=== PATIENT | female | born 2000 | race Caucasian/White ===

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

== ENCOUNTER → 2021-05-10 09:51 | Outpatient (CLI) | payer OTHER, SELFPAY ==
[2021-05-12 07:37] LABS: Hepatitis B Surface Antibody Non-Reactive; Rubella IgG Reactive (Nonreactive)
[2021-05-15 17:07] LABS: QNTFERON TB Mitogen Value > 10.00 IU/mL (.); QNTFERON TB Nil Value 0.31 IU/mL (.); QNTFERON TB1+ Ag Value 1.93 IU/mL (.); QNTFERON TB2+ Ag Value 2.09 IU/mL (.)
[2021-05-15 20:27] LABS: QNTIFERON TB Positive Criteria Positive (Negative); V-Zoster IgG (Immunity) 199 index (Immune >165)
== END ==
PROVIDERS: PCP Pediatrics; Referring Provider Pediatrics; Visit Provider Pediatrics
DX: Z11.9 Encounter for screening for infectious and parasitic diseases, unspecified (principal)
CPT/HCPCS: 36415; 86480; 86706; 86735; 86762; 86765; 86787

== ENCOUNTER → 2021-05-17 08:18 | Outpatient (CLI) | payer OTHER, SELFPAY ==
--- NOTE | 2021-05-17 08:45 | RAD_ITS ---
STUDY: X-RAY CHEST REASON FOR EXAM: Female, 20 years old. POSITIVE QUANTIFERON TB GOLD TEST TECHNIQUE: PA and lateral views of the chest. COMPARISON: 06/29/2011 FINDINGS: The lungs are clear and expanded. There is no demonstrated pleural abnormality. Normal size heart. Normal mediastinum and albino. Normal visualized pulmonary arteries. Normal visualized aortic arch and descending thoracic aorta. Normal visualized thoracic spine. Normal visualized ribs, clavicles, and shoulders. There is no demonstrated abnormality of the visualized soft tissue structures of the upper abdomen. RAD/Chest PA and Lateral IMPRESSION: Normal x-ray examination of the chest. Electronically Signed: Delmar Menchaca MD ([place]) at 18:08 EDT , Service support ,
[2021-05-19 11:14] LABS: HIV - WCH Non-Reactive (Nonreactive); Hepatitis C Antibody Non-Reactive (Nonreactive)
== END ==
PROVIDERS: PCP Pediatrics; Referring Provider Pediatrics; Visit Provider Pediatrics
DX: R76.12 Nonspecific reaction to cell mediated immunity measurement of gamma interferon antigen response without active tuberculosis (principal); Z11.9 Encounter for screening for infectious and parasitic diseases, unspecified
CPT/HCPCS: 36415; 71046; 86703; 86803

== ENCOUNTER → 2022-02-24 | Outpatient (CLI) | payer OTHER, SELFPAY ==
[2022-02-24 18:45] LABS: Chlamydia Trachomatis by PCR Negative (Negative); Neisserai gonorrhoeae by PCR Negative (Negative); Probe Check PASS; Sample Adequacy Control PASS; Specimen Processing Control PASS
== END | disposition home or self-care (01) ==
PROVIDERS: PCP Pediatrics; Referring Provider Nurse Practitioner Women's Health; Visit Provider Nurse Practitioner Women's Health
DX: Z11.3 Encounter for screening for infections with a predominantly sexual mode of transmission (principal)
CPT/HCPCS: 87491; 87591

== ENCOUNTER → 2022-06-12 | Outpatient (CLI) | payer OTHER, SELFPAY | END | disposition home or self-care (01) | LOC: RAD 12:56 | PROVIDERS: PCP Pediatrics; Referring Provider Pediatrics; Visit Provider Pediatrics | DX: Z00.00 Encounter for general adult medical examination without abnormal findings (principal) ==

== ENCOUNTER → 2022-06-13 | Outpatient (CLI) | payer OTHER, SELFPAY ==
--- NOTE | 2022-06-13 08:38 | RAD_ITS ---
EXAM: XR CHEST, 2 VIEWS CLINICAL INDICATION: POSTIVE QUANTIFERON TEST TECHNIQUE: Frontal and lateral views of the chest. This report was created using [employer] report generation technology. COMPARISON: XR Chest dated 05/17/2021 FINDINGS: LUNGS AND PLEURAL SPACES: Normal. No consolidation or edema. No pneumothorax. No effusion. HEART: Normal heart size. MEDIASTINUM: No mediastinal or hilar mass. BONES/JOINTS: No acute abnormality. SOFT TISSUES: Normal. RAD/Chest PA and Lateral IMPRESSION: No acute cardiopulmonary abnormality. No interval change. No evidence of active tuberculosis. Electronically Signed: Gary Madrigal MD at 9:29 EST ,
== END | disposition home or self-care (01) ==
LOC: RAD 08:30
PROVIDERS: PCP Pediatrics; Visit Provider Pediatrics
DX: Z11.1 Encounter for screening for respiratory tuberculosis (principal)
CPT/HCPCS: 71046

== ENCOUNTER → 2023-03-03 | Outpatient (CLI) | payer OTHER, SELFPAY ==
[2023-03-09 17:11] LABS: HPV Reflexed? NOT INDICATED
== END | disposition home or self-care (01) ==
LOC: LABSPEC 16:49
PROVIDERS: PCP Pediatrics; Referring Provider Nurse Practitioner Women's Health; Visit Provider Nurse Practitioner Women's Health
DX: Z12.4 Encounter for screening for malignant neoplasm of cervix (principal)
CPT/HCPCS: 88175; G0145

== ENCOUNTER → 2023-09-03 | Outpatient (CLI) | payer OTHER, SELFPAY ==
--- NOTE | 2023-09-03 16:40 | RAD_ITS ---
STUDY: X-RAY CHEST REASON FOR EXAM: Female, 22 years old. left sided chest pain TECHNIQUE: PA and lateral views of the chest. COMPARISON: 06/13/2010 FINDINGS: The lungs are clear and expanded. There is no demonstrated pleural abnormality. Normal size heart. Normal mediastinum and albino. Normal visualized pulmonary arteries. Normal visualized aortic arch and descending thoracic aorta. Normal visualized thoracic spine. Normal visualized ribs, clavicles, and shoulders. There is no demonstrated abnormality of the visualized soft tissue structures of the upper abdomen. RAD/Chest PA and Lateral IMPRESSION: Normal x-ray examination of the chest. Electronically Signed: Tyler Berger MD at 17:06 EST ,
[2023-09-03 17:10] LABS: Absolute Neutrophil Count 4.4 X10^3/uL (2.0-7.7); Basophil# 0.01 X10^3/uL; Basophil% 0.1 % (0-1); Eosinophil# 0.06 X10^3/uL; Eosinophils% 0.6 % (0-5); Hematocrit 44.3 % (37-47); Hemoglobin 15.2 g/dL (12.0-15.0); Lymphocyte % 45.5 % (19-41); Mean Corp Hgb Conc 34.3 g/dL (32-36); Mean Corpuscular Hgb 30.4 pg (27.0-32.0); Mean Corpuscular Volume 88.6 fL (81-99); Mean Platelet Vol. 10.5 fl (6.2-12.0); Monocyte# 0.62 X10^3/uL; Monocyte% 6.6 % (0-10); NRBC Flagged by Analyzer 0 % (0-5); Neutrophil # 4.44 X10^3/uL (2.7-7.7); Platelet Count 295 K/mm3 (150-450); RBC Distribution Width CV 12.3 % (11.6-14.6); RBC Distribution Width SD 39.9 fl (35.1-43.9); White Blood Count 9.5 K/mm3 (4.4-11.0)
--- OUTSIDE RECORDS SUMMARY | 2023-09-03 17:47 | XMS RPT_ITS | CCD ---
Author Name Unknown Address [address] [place] [address] Organization [facility] Care Team Providers Care Care Transitions Nurse Name Role Phone Tricia Beaulieu MD Unavailable [phone] DIMA DAWSON JR. Attending Unavailable JULIUS GALLEGO Primary Care Unavailable Julius Gallego MD Primary Care Provider Julius Gallego MD Primary Care Provider Julius Gallego MD Primary Care Provider Antwon Bowens MD Primary Care Provider [phone] JULIUS GALLEGO Referring Unavailable JULIUS GALLEGO Primary Care Unavailable JULIUS GALLEGO Referring Unavailable JULIUS GALLEGO Primary Care Unavailable ROBY GARCIA II Attending UnavailANTWON Hollis Primary Care Unavailable Allergies Allergy Classification Reported Allergen(s) Allergy Type Date of Onset Reaction(s) Facility (7 sources) Spironolactone; Translations: [SPIRONOLACTONE] Drug Allergy 8 Anaphylaxis, Hives [facility] Repository Medications Current Medications Medication Drug Class(es) Dates Sig (Normalized) Sig (Original) cephalexin 500 mg oral capsule (1 source) Cephalosporin Antibacterial Start: 10-03-2021 End: 10-10-2021 take 1 capsule by mouth four times daily cephALEXin (KEFLEX) 500 MG capsule Take 1 (one) capsule (500 mg total) by mouth 4 (four) times a day for 7 days . 28 capsule 0 10/03/2021 10/10/2021 Active Rojelio 28, 3-0.02 mg per tablet (1 source) Start: 09-17-2021 Nelson Serrato, 3-0.02 mg per tablet silver sulfADIAZINE 10 mg/ml topical cream (1 source) Sulfonamide Antibacterial Start: 10-03-2021 silver sulfADIAZINE (SILVADENE) 1 % cream Apply topically 2 (two) times a day Apply to corner of toe 2 times per day with bandaid for one week . 50 g 0 10/03/2021 Active tropicamide 5 mg/ml ophthalmic solution (1 source) Anticholinergic Start: 04-07-2023 End: 04-07-2023 tropicamide 0.5 % 1 Drop (MYDRIACYL) Completed/Discontinued Medications Medication Drug Class(es) Dates Sig (Normalized) Sig (Original) DROSPIRENONE-ETHIN YL ESTRADIOL (6 sources) Progestin, Estrogen Start: 06-14-2017 take 1 tablet by mouth once daily CAROL 3-0.02 MG TABS One tablet by mouth daily DROSPIRENONE-ETHIN YL ESTRADIOL [id number] Tricia Beaulieu MD Problems Active Problems Problem Classification Problem Date Documented Da te Episodic/Chronic Blindness and vision defects (5 sources) Regular astigmatism; Translations: [Regular astigmatism, unspecified eye] Onset: 02-24-2016 02-24-2016 Episodic Immunizations and screening for infectious disease (2 sources) Patient encounter status; Translations: [Encounter for screening for infectious and parasitic diseases, unspecified] Episodic Menstrual disorders (2 sources) Break-through bleeding; Translations: [Irregular menstruation, unspecified] Onset: 06-14-2017 06-14-2017 Chronic Other skin disorders (1 source) Ingrowing great toenail; Translations: [Ingrowing nail] Episodic Skin and subcutaneous tissue infections (1 source) Cellulitis of left foot; Translations: [Cellulitis of left lower limb] Episodic Past or Other Problems Problem Classification Problem Date Documented Da te Episodic/Chronic Other skin disorders (2 sources) Acne; Translations: [Acne, unspecified] Onset: 06-14-2017 06-14-2017 Episodic Results Test Name Value Interpretation Reference Range Facil ity Vital Signs Date Time Vital Sign Value Performing Clinician Faci lity 10-03-2021 13:32-0400 Body temperature 98.01 [degF] Dima Dawson Jr., DPM Work Phone: [facility] 10-03-2021 13:32-0400 Diastolic blood pressure 76 mm[Hg] Dima Dawson Jr., DPM Work Phone: [facility] 10-03-2021 13:32-0400 Heart rate 89 /min Dima Dawson Jr., DPM Work Phone: [facility] 10-03-2021 13:32-0400 Systolic blood pressure 117 mm[Hg] Dima Dawson Jr., DPM Work Phone: [facility] 06-14-2017 08:58-0500 BMI (Body Mass Index) 23.41 kg/m2 Tricia Beaulieu MD [facility] 06-14-2017 08:58-0500 BP Diastolic 67 mm[Hg] Tricia Beaulieu MD [facility] 06-14-2017 08:58-0500 BP Systolic 106 mm[Hg] Tricia Beaulieu MD [facility] 06-14-2017 08:58-0500 Height 157.48 cm Tricia Beaulieu MD [facility] 06-14-2017 08:58-0500 Weight 58.06 kg Tricia Beaulieu MD [facility] Encounters Encounter Date Encounter Type Care Provider Facility Start: 04-07-2023 End: 04-07-2023 ambulatory ROBY GARCIA II Facility:[facility] Start: 04-07-2023 End: 04-07-2023 Patient encounter procedure Roby Garcia OD Work Phone: Optometry Procedures Date Procedure Procedure Detail Performing Clinician Start: 04-07-2023 Computerized corneal topography uni/bi Roby Garica OD Work Phone: Start: 07-16-2022 Skin test tuberculos is intradermal Vane Gomez PA-C Work Phone: Start: 05-30-2021 Adult depression scr eening assessment Nurse [place] Plan of Treatment Date Care Activity Detail Author Start: 01-23-2024 Tetanus vaccination Tetanus: Every 10yrs [facility] Start: 01-23-2024 Urine microalbumin profile [facility] Start: 03-19-2023 Influenza [facility] Start: 02-24-2023 CHLAMYDIA SCREENING (18-24) CHLAMYDIA SCREENING (18-24) [facility] Start: 02-24-2023 GC (GONORRHEA) SCREENING (18-24) GC (GONORRHEA) SCREENING (18-24) [facility] Start: 2022 Pap Testing Pap Testing [facility] Start: 07-19-2022 DEPRESSION ASSESSMENT DEPRESSION ASSESSMENT [facility] Start: 05-30-2022 Adult depression screening assessment DEPRESSION SCREENING [facility] Start: 03-19-2022 Influenza vaccination INFLUENZA (#1) [facility] Start: 02-06-2022 COVID-19 Vaccine (3 - Booster for Pfizer series) COVID-19 Vaccine (3 - Booster for Pfizer series) [facility] Start: 01-06-2022 End: 03-08-2022 Hepatitis B virus surface Ab [Units/volume] in Serum HEP B SURF AB QUANT Lab Routine Screening examination for infectious disease Expected: 01/06/2022, Expires: 03/08/2022 [facility] Work Phone: Immunizations Immunization Date Immunization Notes Care Provider Qasim mcgarry 04-09-2022 Influenza, injectabl e, Madin [place] Canine Kidney, preservative free, quadrivalent Nurse [facility] 04-09-2022 influenza virus vaccine, unspecified formulation Roby Garcia II, OD Work Phone: [facility] 01-06-2022 hepatitis B vaccine, adult dosage Nurse [facility] Work Phone: 07-09-2021 hepatitis B vaccine, pediatric or pediatric/adolescent dosage Nurse [facility] Work Phone: 05-30-2021 hepatitis B vaccine, pediatric or pediatric/adolescent dosage Nurse [facility] 05-30-2021 influenza, injectabl e, quadrivalent, contains preservative Nurse [facility] 05-29-2020 influenza, injectabl e, quadrivalent, contains preservative Nurse [facility] 05-15-2019 influenza, injectabl e, quadrivalent, contains preservative Nurse [facility] 06-04-2018 influenza, injectabl e, quadrivalent, contains preservative Nurse [facility] 12-23-2017 meningococcal polysaccharide (groups A, C, Y and W-135) diphtheria toxoid conjugate vaccine (MCV4P) [facility] 07-09-2017 influenza, injectabl e, quadrivalent, contains preservative Roby Garcia II, OD Work Phone: [facility] Work Phone: 06-08-2016 influenza, injectabl e, quadrivalent, contains preservative [facility] Work Phone: 12-05-2014 human papilloma viru s vaccine, quadrivalent Nurse [facility] 04-30-2014 human papilloma viru s vaccine, quadrivalent [facility] 04-30-2014 influenza, injectabl e, quadrivalent, preservative free [facility] 01-22-2014 human papilloma viru s vaccine, quadrivalent [facility] Work Phone: 01-22-2014 meningococcal polysaccharide (groups A, C, Y and W-135) diphtheria toxoid conjugate vaccine (MCV4P) [facility] Work Phone: 01-22-2014 tetanus toxoid, redu kelley diphtheria toxoid, and acellular pertussis vaccine, adsorbed [facility] Work Phone: 01-22-2014 varicella virus vaccine [facility] Work Phone: 04-29-2013 influenza virus vaccine, unspecified formulation [facility] 04-06-2008 influenza virus vaccine, live, attenuated, for intranasal use [facility] Work Phone: 03-20-2006 diphtheria, tetanus toxoids and acellular pertussis vaccine [facility] 03-20-2006 measles, mumps and rubella virus vaccine [facility] 03-20-2006 poliovirus vaccine, inactivated Nurse [facility] 06-11-2003 diphtheria, tetanus toxoids and acellular pertussis vaccine [facility] Work Phone: 06-11-2003 haemophilus influenz ae type b vaccine, HbOC conjugate [facility] Work Phone: 06-11-2003 pneumococcal conjuga te vaccine, 7 valent Nurse [facility] Work Phone: 2002 measles, mumps and rubella virus vaccine Nurse [facility] Work Phone: 2002 varicella virus vaccine Nurse [facility] Work Phone: 09-08-2002 pneumococcal conjuga te vaccine, 7 valent Nurse [facility] Work Phone: 05-19-2002 diphtheria, tetanus toxoids and acellular pertussis vaccine Nurse [facility] Work Phone: 05-19-2002 haemophilus influenz ae type b vaccine, HbOC conjugate [facility] Work Phone: 05-19-2002 hepatitis B vaccine, pediatric or pediatric/adolescent dosage Nurse [facility] Work Phone: 05-19-2002 pneumococcal conjuga te vaccine, 7 valent [facility] Work Phone: 05-19-2002 poliovirus vaccine, inactivated Nurse [facility] Work Phone: 03-24-2002 diphtheria, tetanus toxoids and acellular pertussis vaccine [facility] Work Phone: 03-24-2002 haemophilus influenz ae type b vaccine, HbOC conjugate [facility] Work Phone: 03-24-2002 poliovirus vaccine, inactivated Nurse [facility] Work Phone: 01-24-2002 diphtheria, tetanus toxoids and acellular pertussis vaccine Nurse [facility] Work Phone: 01-24-2002 haemophilus influenz ae type b vaccine, HbOC conjugate [facility] Work Phone: 01-24-2002 hepatitis B vaccine, pediatric or pediatric/adolescent dosage Nurse [facility] Work Phone: 01-24-2002 pneumococcal conjuga te vaccine, 7 valent Nurse [facility] Work Phone: 01-24-2002 poliovirus vaccine, inactivated Nurse [facility] Work Phone: 2001 hepatitis B vaccine, pediatric or pediatric/adolescent dosage Nurse [place] [facility] Work Phone: Payers Date Payer Category Payer Unknown [id number] 2020 Unknown MMO MMO TPA [id number] 2020-Present [address] [place] [address] PPO [id number] 2015 Unknown [id number] 2015 Unknown [id number] 2001 Unknown [id number] Social History Date Type Detail Facility Start: 06-29-2017 End: 10-03-2021 Tobacco smoking status NHIS Never smoked tobacco [facility] Start: 06-29-2017 End: 10-03-2021 Tobacco use and exposure Smokeless tobacco non-user [facility] Start: 10-03-2021 Alcohol intake Current drinke r of alcohol (finding) [facility] Start: 10-03-2021 History SDOH Alcohol Comment occasionally [facility] Start: 2001 Sex Assigned At Not on file [facility] Start: 09-23-2021 End: 10-03-2021 Exposure to SARS-CoV-2 (event) Not sure [facility] Start: 06-10-2021 End: 04-07-2023 Alcohol intake Lifetime non-drinker (finding) [facility] Start: 05-29-2020 History SDOH Alcohol Frequency 1 [facility] Start: 05-29-2020 End: 04-07-2023 History of Social function [facility] Start: 05-29-2020 End: 04-07-2023 Alcohol Use Disorder Identification Test - Consumption [AUDIT-C] [facility] How often to you hav e a drink containing alcohol? Never [facility] Average Number of Drinks Not on file [facility] Progress note 04-07-2023 Note Date & Type Note Facility 04-07-2023 Note HNO ID: [id number] Author: Roby Garcia II, OD Service: ? Author Type: MANAGING COGNITIVE ENGINEER Type: Progress Notes Filed: 04/07/2023 9:54 AM Note Text: Assessment and Plan H52.223 Regular astigmatism of both eyes (primary encounter diagnosis) Comment: Ocular health maintained with contact lens use. Good fit. Celeste stable. Will order daily disposables to try. Recheck in one year. I have confirmed and edited as necessary the relevant ophthalmic history, ROS, and the neuro exam findings as obtained by others. I have seen and examined Ashley A Trudy. I have discussed the case and the management of this patient's care with the Resident/Fellow, if applicable. I also have reviewed and agree with the assessment and plan as stated above and agree with all of its relevant components. Roby Garcia II, OD [facility] Instructions 04-07-2023 Patient Instructions Note Date & Type Note Facility 04-07-2023 Instructions Roby Garcia II, OD - 04/07/2023 9:44 AM EDT Assessment and Plan H52.223 Regular astigmatism of both eyes (primary encounter diagnosis) Comment: Ocular health maintained with contact lens use. Good fit. Celeste stable. Will order daily disposables to try. Recheck in one year. I have confirmed and edited as necessary the relevant ophthalmic history, ROS, and the neuro exam findings as obtained by others. I have seen and examined Ashleyevangelina Yates. I have discussed the case and the management of this patient's care with the Resident/Fellow, if applicable. I also have reviewed and agree with the assessment and plan as stated above and agree with all of its relevant components. Roby Garcia II, OD documented in this encounter [facility] History of Present illness Narrative 04-07-2023 Roby Garcia II OD - 04/07/2023 9:43 AM EDT Note Date & Type Note Facility 04-07-2023 History of Presen t illness Narrative Assessment and Plan H52.223 Regular astigmatism of both eyes (primary encounter diagnosis) Comment: Ocular health maintained with contact lens use. Good fit. Celeste stable. Will order daily disposables to try. Recheck in one year. I have confirmed and edited as necessary the relevant ophthalmic history, ROS, and the neuro exam findings as obtained by others. I have seen and examined Ashley Yates. I have discussed the case and the management of this patient's care with the Resident/Fellow, if applicable. I also have reviewed and agree with the assessment and plan as stated above and agree with all of its relevant components. Roby Garcia II, MICHAEL documented in this encounter [facility] Note 06-12-2022 Telephone Encounter - Yudith Barrett LPN - 06/12/2022 12:27 PM ESTTelephone Encounter - Francisco Javier Dunn MD - 06/12/2022 11:31 AM ESTTelephone Encounter - Yudith Barrett LPN - 06/12/2022 10:50 AM EST Note Date & Type Note Facility 06-12-2022 Miscellaneous Notes Formattin g of this note might be different from the original. Order was faxed to [facility] at [phone]. Pt was notified. Form completed and signed Pt wonders if you can order the chest xray, as is able to get it done today? [facility] order form is in your box. Pt wonders if an order can be faxed to [facility] to have the xray done? Patient calling to report that had another positive Quantiferon test (done at [facility] in [place]- will be working there). She was wondering if you would be willing to order a chest X-ray for clearance to begin work. Would like to have done Wednesday. Buddy Dean RN documented in this encounter [facility] History of Present illness Narrative 10-03-2021 Dima Dawson Jr., BACILIO - 10/03/2021 1:47 PM EDT Note Date & Type Note Facility 10-03-2021 History of Presen t illness Narrative HPI Chief Complaint Patient presents with Ingrown Toenail L great toe nail ingrown --x 2-3 wks pt has dealt with ingrown toe nails for years and has had the L nail completely removed and it has grown back - toe is red and has had some drainage Patient is a pleasant 20-year-old female who comes in today with an acute left medial ingrown nail. She states that nearly 1 year ago, and [place] she had a bad ingrown nail with an infection. She had a total nail avulsion performed at that time and washed out. States that it did well for quite a while however the medial corner continues to get ingrown becomes painful sore and is uncomfortable. Comes in today to know what can be done and what her options are. Additionally she is hoping to have a nail avulsion performed with a matrixectomy. History reviewed. No pertinent past medical history. Past Surgical History: Procedure Laterality Date WISDOM TOOTH EXTRACTION Social History Socioeconomic History Marital status: Single Tobacco Use Smoking status: Never Smoker Smokeless tobacco: Never Used Vaping Use Vaping Use: Never used Substance and Sexual Activity Alcohol use: Yes Comment: occasionally Drug use: Never Review of Systems Constitutional: Negative for chills and fever. Respiratory: Negative for chest tightness and shortness of breath. Cardiovascular: Negative for chest pain and palpitations. Gastrointestinal: Negative for diarrhea, nausea and vomiting. Skin: Negative for color change and wound. Physical Exam -Patient is AOx3. Linear and appropriate humor and thought process. Vascular: DP PT pulses are easily palpable 2-4. CFT is normal no edema. Derm: Erythema present to the distal medial toe with serous output. No streaking no lymphangitis no fluctuance or crepitation. Neuro: Light touch is normal Babinski's is normal. Musculoskeletal: Muscle strength is 5/5 fair tone. Can easily wiggle toes not any clicking or catching. Does have much pain to the medial aspect of her toe where the nail is clearly ingrown and painful. Impression/Plan Problem List Items Addressed This Visit None Patient is a pleasant 20-year-old female with an acute on chronic medial ingrown nail with cellulitis. -Today can start oral cephalexin 500 mg every 6 hours 7 days 20 tabs 0 refills. -Postop can apply topical Silvadene twice daily for 1 week with a Band-Aid -Today additionally did go over options including a nail avulsion or nail avulsion with matrixectomy. After discussion, plan is for nail avulsion with chemical matrixectomy for permanency given the acute on chronic nature. No guarantees are implied or made. Primary risks include recurrence pain tingling burning scarring infection ingrowing nail and osteomyelitis. Despite this risk, she does wish to proceed. No guarantees are implied or made. Consent was signed and documented in the EMR. Procedure: Timeout and consent was performed for Left great toe medial and lateral nail avulsion. Patient was blocked with 3 cc of 2% lidocaine plain in each block type fashion. Attention was directed first medially. An Estonian anvil was used to split the nail distally to proximally. 3 mm off the hyponychium just below the eponychial him and finished with a 6100 blade. With a straight hemostat the nail was bluntly avulsed and passed off the surgical field. A curette was used to check for spicules, none were found. A copious amount of normal saline was used. Next, 3 applications of phenol 30 seconds each on cotton were applied to the matrix. Post matrixectomy a copious amount of normal saline was used to irrigate the site and the location. Post irrigation a copious amount of bacitracin was applied and a postop dressing was applied with Telfa Garciax and Margarita. Low medical complexity decision making in light of the acute on chronic nature and the chronicity portion requiring a procedure. documented in this encounter [facility] Instructions 10-03-2021 Patient Instructions Note Date & Type Note Facility 10-03-2021 Instructions Kyra Andrews TECHNOLOGIST - 10/03/2021 1:33 PM EDT Nail Surgery Post-Operative Instructions General Information Stay off your feet as much as possible today. You may wear any shoe, sandal, or open toe footwear that does not squeeze or constrict your toe. Your toe may remain numb for up to 6-10 hours after the procedure. Bleeding/Drainage Slight bleeding, discoloration and/or red, pink, orange drainage is normal. Discomfort You can elevate your foot to help alleviate minor swelling, bleeding and discomfort. You may also take aspirin, Tylenol or other [id number] pain relievers as directed on the package. If pain is not controlled to your comfort, please contact our office. Removing the surgical bandage/dressing The day after the surgery, carefully remove the dressing and shower/bathe as normal. If the gauze or dressing sticks to the surgical area, dampen it with water or shower/bathe with the dressing in place. This will make the dressing easier to remove with minimal discomfort. Blot dry with a clean cloth. A band-aid and antibiotic ointment should be changed twice daily on the surgical area until your follow-up appointment with the doctor. documented in this encounter [facility] Evaluation note Note Date & Type Note Facility documented in this encounter [facility] note Note Date & Type Note Facility documented in this encounter [facility] Evaluation note Note Date & Type Note Facility documented in this encounter [facility] Evaluation note Note Date & Type Note Facility documented in this encounter [facility] Summary Purpose Family History No Family History Records FoundNo Family History Records FoundNo Family History Records Found Advance Directives No Advanced Directives Records FoundDocuments on File Type Date Recorded Patient Turning Sander Tender Expl anation Advance Directives and Living Will Medications Administered Section Administered Medications Medication Order MAR Action Action Date Dose Rate Site PPD ([place]) Intradermal Given 07/14/2022 10:02 EST 0.1 mL Right Lower Forearm Additional Source Comments INFORMATION SOURCE (unrecogn ized section and content) DATE CREATED AUTHOR AUTHOR'S ORGANIZ ATION 06/05/2022 [facility] ([place]) DATE CREATED AUTHOR AUTHOR'S ORGANIZ ATION 04/08/2023 [facility] Reason for Visit (unrecogniz ed section and content) Specialty Diagnoses / Procedures Referred By Contac t Referred To Contact PEDIATRICS Diagnoses Hep B booster Procedures OFFICE/OUTPATIENT ESTABLISHED LOW MDM 20-29 MIN 4C NURSE Julius Kellogg MD [address] [place] [address] [facility] [address] [place] [address] Referral ID Status Reason Start Date Expiration Date Visits Re quested Visits Authorized [id number] Closed 01/06/2022 07/18/2022 1 1 Reason Comments Question Specialty Diagnoses / Procedures Referred By Contac t Referred To Contact Internal Medicine / FAMILY MEDICINE Diagnoses TB test Procedures OFFICE/OUTPATIENT ESTABLISHED LOW MDM 20-29 MIN NURSE Julius Gallego MD [address] [place] [address] Nurse, Md [address] [place] [address] Referral ID Status Reason Start Date Expiration Date Visits Re quested Visits Authorized [id number] Closed 07/14/2022 07/18/2022 2 2 Reason Comments Yearly Exam Contact lens evaluation Care Teams (unrecognized sec tion and content) Care Transitions Nurse Relationship Specialty Start Date End Date Julius Gallego MD [address] [place], [place] [id number] PCP - General 10/29/03 Care Transitions Nurse Relationship Specialty Start Date End Date Julius Gallego MD [address], [place] [id number] PCP - General 10/29/03 Care Transitions Nurse Relationship Specialty Start Date End Date Julius Gallego MD [address], [place] [id number] PCP - General 10/29/03 Care Transitions Nurse Relationship Specialty Start Date End Date Antwon Bowens MD [address] [place] [address] PCP - General Internal Medicine 04/07/23 Source Comments (unrecognize d section and content) In the event this informatio n is protected by the Federal Confidentiality of Alcohol and Drug Abuse Patient Records regulations: The Federal rules restrict any use of the information to criminally investigate or prosecute any alcohol or drug abuse patient.[facility] the event this information is protected by the Federal Confidentiality of Alcohol and Drug Abuse Patient Records regulations: The Federal rules restrict any use of the information to criminally investigate or prosecute any alcohol or drug abuse patient.[facility] the event this information is protected by the Federal Confidentiality of Alcohol and Drug Abuse Patient Records regulations: The Federal rules restrict any use of the information to criminally investigate or prosecute any alcohol or drug abuse patient.[facility] the event this information is protected by the Federal Confidentiality of Alcohol and Drug Abuse Patient Records regulations: The Federal rules restrict any use of the information to criminally investigate or prosecute any alcohol or drug abuse patient.[facility] FOR RECORDS PERTAINING TO PATIENTS WHO ARE OR HAVE BEEN ENROLLED IN A CHEMICAL DEPENDENCY/SUBSTANCEABUSE PROGRAM, SOME INFORMATION MAY BE OMITTED. This clinical summary was aggregated from multiple sources. Caution should be exercised in using it in the provision of clinical care. This summary normalizes information from multiple sources, and as a consequence, information in this document may materially change the coding, format and clinical context of patient data. In addition, data may be omitted in some cases. CLINICAL DECISIONS SHOULD BE BASED ON THE PRIMARY CLINICAL RECORDS. [facility]. provides no warranty or guarantee of the accuracy or completeness of information in this document.
[2023-09-03 17:49] LABS: Anion Gap 3 (5-15); BUN 16 mg/dL (7-18); BUN/Creat Ratio 17.1 RATIO (10-20); CRP < 2.90 mg/L (0.0-3.0); Calcium,Total 9.5 mg/dL (8.5-10.1); Chloride 108 mmol/L (98-107); Creatinine, Serum 0.94 mg/dL (0.55-1.02); EST Glomerular Filtration Rate 80 mL/min (>60); Est Glom Filt Rate - Afr Amer 96 mL/min (>60); Glucose 96 mg/dL (74-106); Magnesium 2.4 mg/dL (1.6-2.6); Potassium 3.9 mmol/L (3.5-5.1); Sodium Level 140 mmol/L (136-145); T4 Total, Thyroxin 9.5 ug/dL (4.8-13.9); Thyroid Stim Hormone (TSH) 4.67 uIU/mL (0.358-3.74); Troponin-I HS < 3 pg/mL (3.0-54.0)
== END | disposition home or self-care (01) ==
PROVIDERS: PCP Internal Medicine; Referring Provider Nurse Practitioner; Visit Provider Nurse Practitioner
DX: R06.02 Shortness of breath (principal); R07.9 Chest pain, unspecified
CPT/HCPCS: 36415; 71046; 80048; 83735; 84436; 84443; 84484; 85025; 86140; 87635

== ENCOUNTER → 2024-02-28 | Outpatient (CLI) | payer OTHER, SELFPAY ==
[2024-03-02 07:09] LABS: Chlamydia By Nucleic Acid AMP Negative (Negative); Gonococcus By Nucleic Acid AMP Negative (Negative)
== END | disposition home or self-care (01) ==
PROVIDERS: PCP Internal Medicine; Referring Provider Obstetrics & Gynecology; Visit Provider Obstetrics & Gynecology
DX: O09.90 Supervision of high risk pregnancy, unspecified, unspecified trimester (principal); Z3A.00 Weeks of gestation of pregnancy not specified
CPT/HCPCS: 87086; 87491; 87591

== ENCOUNTER → 2024-03-06 | Outpatient (CLI) | payer OTHER, SELFPAY ==
[2024-03-06 08:17] LABS: Absolute Lymphocyte Count 3.38 X10^3/uL (0.83-4.51); Absolute Neutrophil Count 7.1 X10^3/uL (2.0-7.7); Basophil# 0.02 X10^3/uL; Basophil% 0.2 % (0-1); Eosinophils% 0.9 % (0-5); Hematocrit 38.5 % (37-47); Hemoglobin 13.3 g/dL (12.0-15.0); Lymphocyte # 3.38 X10^3/ul (0.83-4.51); Lymphocyte % 30.2 % (19-41); Mean Corp Hgb Conc 34.5 g/dL (32-36); Mean Corpuscular Hgb 30.5 pg (27.0-32.0); Mean Corpuscular Volume 88.3 fL (81-99); Mean Platelet Vol. 10.7 fl (6.2-12.0); Monocyte# 0.56 X10^3/uL; NRBC Flagged by Analyzer 0 % (0-5); Neutrophil # 7.12 X10^3/uL (2.7-7.7); Neutrophil % 63.4 % (47-70); Platelet Count 228 K/mm3 (150-450); RBC Distribution Width CV 12.5 % (11.6-14.6); RBC Distribution Width SD 40.3 fl (35.1-43.9); Red Blood Count 4.36 M/mm3 (4.2-5.4); White Blood Count 11.2 K/mm3 (4.4-11.0)
[2024-03-06 09:13] LABS: HIV - WCH Non-Reactive (Nonreactive); Hepatitis B Surface Antigen Non-Reactive (Nonreactive); Hepatitis C Antibody Non-Reactive (Nonreactive); Rubella IgG Reactive (Nonreactive); Syphilis Antibodies Non-reactive
[2024-03-06 09:50] LABS: ALB/GLOB Ratio 0.8 RATIO (0.9-2.4); AST(SGOT) 16 U/L (15-37); Alanine Aminotransfer ALT/SGPT 33 U/L (13-56); Albumin, Serum 3.2 g/dL (3.2-5.0); Alkaline Phosphatase 69 U/L (45-117); Anion Gap 8 (5-15); BUN 8 mg/dL (7-18); BUN/Creat Ratio 11.1 RATIO (10-20); Calcium,Total 8.8 mg/dL (8.5-10.1); Chloride 104 mmol/L (98-107); Cholesterol 164 mg/dL (200); Creatinine, Serum 0.72 mg/dL (0.55-1.02); EST Glomerular Filtration Rate 108 mL/min (>60); Est Glom Filt Rate - Afr Amer 130 mL/min (>60); Glucose 88 mg/dL (74-106); High Density Lipoprotein 63 mg/dL; Potassium 3.5 mmol/L (3.5-5.1); Protein, Total 7.2 g/dL (6.4-8.2); Sodium Level 135 mmol/L (136-145); Triglycerides 182 mg/dL; Very Low Density Lipoprotein 36 mg/dL (5-40)
== END | disposition home or self-care (01) ==
LOC: LAB 07:38
PROVIDERS: PCP Internal Medicine; Referring Provider Obstetrics & Gynecology; Visit Provider Obstetrics & Gynecology
DX: Z34.01 Encounter for supervision of normal first pregnancy, first trimester (principal); Z31.430 Encounter of female for testing for genetic disease carrier status for procreative management
CPT/HCPCS: 36415; 80053; 80061; 85025; 86703; 86762; 86780; 86803; 86850; 86900; 86901; 87340

== ENCOUNTER → 2024-03-08 | Outpatient (CLI) | payer OTHER, SELFPAY ==
[2024-03-08 14:50] LABS: T4 Free Direct 0.99 ng/dL (0.76-1.46)
== END | disposition home or self-care (01) ==
LOC: LAB 13:54
PROVIDERS: PCP Internal Medicine; Referring Provider Obstetrics & Gynecology; Visit Provider Obstetrics & Gynecology
DX: R94.6 Abnormal results of thyroid function studies (principal)
CPT/HCPCS: 36415; 84439; 84443

== ENCOUNTER → 2024-07-05 | Outpatient (CLI) | payer OTHER, SELFPAY ==
[2024-07-05 10:31] LABS: Absolute Lymphocyte Count 2.46 X10^3/uL (0.83-4.51); Absolute Neutrophil Count 7.2 X10^3/uL (2.0-7.7); Basophil# 0.03 X10^3/uL; Basophil% 0.3 % (0-1); Eosinophil# 0.06 X10^3/uL; Eosinophils% 0.6 % (0-5); Hematocrit 38.5 % (37-47); Hemoglobin 13.2 g/dL (12.0-15.0); Lymphocyte # 2.46 X10^3/ul (0.83-4.51); Lymphocyte % 23.5 % (19-41); Mean Corp Hgb Conc 34.3 g/dL (32-36); Mean Corpuscular Hgb 32.2 pg (27.0-32.0); Mean Corpuscular Volume 93.9 fL (81-99); Mean Platelet Vol. 12.2 fl (6.2-12.0); Monocyte# 0.61 X10^3/uL; Monocyte% 5.8 % (0-10); NRBC Flagged by Analyzer 0 % (0-5); Neutrophil # 7.23 X10^3/uL (2.7-7.7); Platelet Count 184 K/mm3 (150-450); RBC Distribution Width CV 12.7 % (11.6-14.6); RBC Distribution Width SD 43.9 fl (35.1-43.9); White Blood Count 10.5 K/mm3 (4.4-11.0)
[2024-07-05 10:57] LABS: Glucose Challenge Gest 1H 50g 141 mg/dL (70-140)
[2024-07-06 08:36] LABS: HIV - WCH Non-Reactive (Nonreactive); Syphilis Antibodies Non-reactive
== END | disposition home or self-care (01) ==
LOC: BWCLAB 08:08
PROVIDERS: Obstetrics & Gynecology; PCP Internal Medicine; Referring Provider Obstetrics & Gynecology; Visit Provider Obstetrics & Gynecology
DX: O09.90 Supervision of high risk pregnancy, unspecified, unspecified trimester (principal); Z3A.00 Weeks of gestation of pregnancy not specified; Z13.1 Encounter for screening for diabetes mellitus
CPT/HCPCS: 36415; 82950; 85025; 86703; 86780

== ENCOUNTER → 2024-07-21 | Outpatient (CLI) | payer OTHER, SELFPAY ==
[2024-07-21 07:15] LABS: Bedside Glucose 80 mg/dL (74-106)
[2024-07-21 07:27] LABS: Glucose GTT-Gestation. Fasting 85 mg/dL (<105)
[2024-07-21 08:20] LABS: Glucose GTT-Gestational 1 Hr 171 mg/dL (<190)
[2024-07-21 10:03] LABS: Glucose GTT-Gestational 2 Hr 124 mg/dL (<165)
[2024-07-21 10:32] LABS: Glucose GTT-Gestational 3 Hr 110 L (<145)
== END | disposition home or self-care (01) ==
LOC: LAB 06:47
PROVIDERS: PCP Internal Medicine; Referring Provider Advanced Practice Midwife; Visit Provider Advanced Practice Midwife
DX: Z13.1 Encounter for screening for diabetes mellitus (principal)
CPT/HCPCS: 36415; 82951; 82952; 82962

== ENCOUNTER → 2024-08-29 | Outpatient (CLI) | payer OTHER, SELFPAY | END | disposition home or self-care (01) | LOC: LABSPEC 11:46 | PROVIDERS: PCP Internal Medicine; Referring Provider Obstetrics & Gynecology; Visit Provider Obstetrics & Gynecology | DX: O09.90 Supervision of high risk pregnancy, unspecified, unspecified trimester (principal); Z3A.00 Weeks of gestation of pregnancy not specified | CPT/HCPCS: 87081 ==

== ENCOUNTER 2024-09-05 08:25 | Outpatient (CLI) | payer OTHER, SELFPAY ==
[2024-09-05 08:44] VITALS: BMI 31.6
--- NOTE | 2024-09-05 13:17 | OB.TRI.HP_ITS ---
HPI - General General Chief Complaint: NST HPI Narrative ERIN PRATER, is a 23 F who presents at 36.3 with di-di twins for NST. Maternal Data Information HONG Calculator Estimated Delivery Date Method Current WG Current Estimate 09/30/24 LMP (Certain) 36w 3d Other Estimates 10/02/24 Ultrasound #1 36w 1d # 2 PFSH PFSH Medical History Medium chain acyl CoA dehydrogenase deficiency [facility] Medications ?Medication ?Instructions ?Recorded ?Last Taken ?Type PNV 153-FA 400 mcg-om3 35 mg-dha tab PO 02/18/24 Unkno wn History 25 mg-epa 5 mg-fish oil chew tablet ferrous sulfate 325 mg (65 mg 325 mg PO QDAY 04/27/24 Unknown History iron) tablet breast pump #1 ea 06/29/24 Unknown Rx Allergy/AdvReac Type Severity Reaction Status Date / Time spironolactone (From Allergy Anaphylaxis Verified 09/05/24 08:47 Aldactone) Family History Brother Type 1 diabetes Grandmother Cancer Skin cancer Father High cholesterol Grandfather CVA (cerebral vascular accident) Mother Thyroid disorder Surgical History H/O wisdom tooth extraction Social History adopted: No household members: spouse current occupational status: employed current occupation: Cardiac Ultrasound -[employer] pets and animals: Yes pets and animals: dog(s) history of recent travel: No sexually active: Yes Smoking Status: Never smoker alcohol intake: current alcohol intake frequency: a few times a month details: not while substance use type: does not use well-balanced diet: daily or most days caffeine: Yes (1 Crystal Light) eating out: rarely or never during the past year weight has: remained stable what type of physical activity do you participate in: walking frequency: 1-2 times per week duration: 30-45 minutes/day rosaura/samaritan: None seatbelt use: always do you feel safe at home: Yes 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 1 Elective abortions Hx Para 0 Spontaneous abortions Hx # Term Pregnancies Ectopic pregnancies Hx # Pregnancies Multiple births # of living children Visit Details Expected Delivery Route/Plan Labor Preferences- CB/BF classes: [] labor support person: [] labor intervention preferences: [] pain management options preferred: [] cut cord/dad catch: [] : [] PP control planned: [] discussed possible routes of delivery and associated risks: [] special requests: [] Plans Covid status: [] Flu vaccine: [] Tdap vaccine: [] Rhogam: [] LARC form signed: [] Problem list reviewed and updated with the most current plan of care details and appropriate orders placed. Relevant counseling for the gestational age provided. Continue routine care and follow up unless otherwise noted in visit notes/problem list details OB Flowsheet Initial Weight: Not Recorded Date -?-?-?-?-?-?-?-?-?-?-?-?- EGA Weight BP Urine Prot -?-?-?-?-?-?-?-?-?-?-?-?- Glucose FHR FuHt Pres Dilation -?-?-?-?-?-?-?-?-?-?-?-?- Effaced St Visit Note 02/28/24 -?-?-?-?-?-?-?-?-?-?-?-?- 9w 2d 147 lb 4 oz 134/82 -?-?-?-?-?-?-?-?-?-?-?-?- A 169 -?-?-?-?-?-?-?-?-?-?-?-?- B 165 A -?-?-?-?-?-?-?-?-?-?-?-?- B -?-?-?-?-?-?-?-?-?-?-?-?- A -?-?-?-?-?-?-?-?-?-?-?-?- B A JV- CRL 2.34 -?-?-?-?-?-?-?-?-?-?-?-?- B CRL 2.54 both appear to be i n completely separate sacs- appear di/di. desires nipt. works at [employer] but wants [facility] ultrasound. 03/31/24 -?-?-?-?-?-?-?-?-?-?-?-?- 13w 6d 146 lb 128/86 Negative -?-?-?-?-?-?-?-?-?-?-?-?- Negative A 153 -?-?-?-?-?-?-?-?-?-?-?-?- B 163 A -?-?-?-?-?-?-?-?-?-?-?-?- B -?-?-?-?-?-?-?-?-?-?-?-?- A -?-?-?-?-?-?-?-?-?-?-?-?- B A KW- no vb/crampi ng. Do ing well. US ordered -?-?-?-?-?-?-?-?-?-?-?-?- B 04/27/24 -?-?-?-?-?-?-?-?-?-?-?-?- 17w 5d 150 lb 123/81 Negative -?-?-?-?-?-?-?-?-?-?-?-?- Negative A 150 -?-?-?-?-?-?-?-?-?-?-?-?- B 160 A -?-?-?-?-?-?-?-?-?-?-?-?- B -?-?-?-?-?-?-?-?-?-?-?-?- A -?-?-?-?-?-?-?-?-?-?-?-?- B A SM- no vb crampi ng -?-?-?-?-?-?-?-?-?-?-?-?- B 05/23/24 -?-?-?-?-?-?-?-?-?-?-?-?- 21w 3d 157 lb 126/76 Negative -?-?-?-?-?-?-?-?-?-?-?-?- Negative A 155 -?-?-?-?-?-?-?-?-?-?-?-?- B 144 A -?-?-?-?-?-?-?-?-?-?-?-?- B -?-?-?-?-?-?-?-?-?-?-?-?- A -?-?-?-?-?-?-?-?-?-?-?-?- B A KW- no vb/lof/ct x. good fm. doing well. -?-?-?-?-?-?-?-?-?-?-?-?- B 06/22/24 -?-?-?-?-?-?-?-?-?-?-?-?- 25w 5d 160 lb 4 oz 133/86 Nega tive -?-?-?-?-?-?-?-?-?-?-?-?- Negative A 140 -?-?-?-?-?-?-?-?-?-?-?-?- B 139 32 A Cephalic -?-?-?-?-?-?-?-?-?-?-?-?- B Cephalic -?-?-?-?-?-?-?-?-?-?-?-?- A -?--?-?-?-?-?-?-?-?-?-?-?- B A JV- no lof, vagi nal bleeding, or dec fm. plan gct next visit . has growth scan coming up on [place]. -?-?-?-?-?-?-?-?-?-?-?-?- B 07/10/24 -?-?-?-?-?-?-?-?-?-?-?-?- 28w 2d 162 lb 6 oz 119/78 Nega tive -?-?-?-?-?-?-?-?-?-?-?-?- Negative A 145 -?-?-?-?-?-?-?-?-?-?-?-?- B 135 A Cephalic -?-?-?-?-?-?-?-?-?-?-?-?- B Cephalic -?-?-?-?-?-?-?-?-?-?-?-?- A -?-?-?-?-?-?-?-?-?-?-?-?- B A Sm- no vb lof go od fm no regular ctx -?-?-?-?-?--?-?-?-?-?-?-?- B 07/27/24 -?-?-?-?-?-?-?-?-?-?-?-?- 30w 5d 165 lb 2 oz 118/75 -?-?-?-?-?-?-?-?-?-?-?-?- A 136 -?-?-?-?-?-?-?-?-?-?-?-?- B 141 A Cephalic -?-?-?-?-?-?-?-?-?-?-?-?- B Breech -?-?-?-?-?-?-?-?-?-?-?-?- A -?-?-?-?-?-?-?-?-?-?-?-?- B A JV- no lof, vagi nal bleeding, or dec fm. baby b is breech today. plan nsts on l&D at 36 weeks. -?-?-?-?-?-?-?-?-?-?-?-?- B 08/08/24 -?-?-?-?-?-?-?-?-?-?-?-?- 32w 3d 167 lb 4 oz 117/79 Nega tive -?-?-?-?-?-?-?-?-?-?-?-?- Negative A 158 -?-?-?-?-?-?-?-?-?-?-?-?- B 143 39 A Cephalic -?-?-?-?-?-?-?-?-?-?-?-?- B Cephalic -?-?-?-?-?-?-?-?-?-?-?--?- A -?-?-?-?-?-?-?-?-?-?-?-?- B A JV- no complaint s today. ultrasound reviewed. 2.1% discordance -?-?-?-?-?-?-?-?-?-?-?-?- B 08/22/24 -?--?-?-?-?-?-?-?-?-?-?-?- 34w 3d 170 lb 6 oz 119/78 Nega tive -?-?-?-?-?-?-?-?-?-?-?-?- Negative A 124 -?-?-?-?-?-?-?-?-?-?-?-?- B 131 A Cephalic -?-?-?-?-?-?-?-?-?-?-?-?- B Cephalic -?-?-?-?-?-?-?-?-?-?-?-?- A -?-?-?-?-?-?-?-?-?-?-?-?- B A JV- no contracti ons, loss of fluid, bleeding, or dec fm. next growth scan is not until 09/07. plan to bring back next week for gbs. -?-?-?-?-?-?-?-?-?-?-?-?- B 08/29/24 -?-?-?-?-?-?-?-?-?-?-?-?- 35w 3d 176 lb 2 oz 133/86 Nega tive -?-?-?-?-?-?-?-?-?-?-?-?- Negative A 125 -?-?-?-?-?-?-?-?-?-?-?-?- B 160 A Cephalic -?-?-?-?-?-?-?-?-?-?-?-?- B Cephalic -?-?-?-?-?-?-?-?--?-?-?-?- A -?-?-?-?-?-?-?-?-?-?-?-?- B A SM- no vb lof go od fm no reuglar ctx gbs today -?-?-?-?-?-?-?-?-?-?-?-?- B NST FHR Rate Baby A Baseline: 140 Variability:: Moderate Accelerations:: 15 x 15 Decelerations:: None NST Reactive:: Yes FHR Category:: Category I FHR Rate Baby B Baseline: 145 Variability:: Moderate Accelerations:: 15 x 15 Decelerations:: None NST Reactive:: Yes FHR Category:: Category I Uterine Activity:: none Assessment & Plan (1) Dichorionic diamniotic twin gestation: COMMENT: Growth US Q4 weeks per MFM (2) Dichorionic diamniotic twin in second trimester: COMMENT: start testing at 36 weeks PLAN: Plan Patient presents for triage evaluation secondary to NST for twin at 36.3 weeks FHT: Moderate variability reactive no decelerations category I tracing for both fetuses [place]: no Contractions Assessment and plan: Reactive NST, reassuring maternal and status patient discharged to home to follow-up in office. See problem list details for additional plan information. Charges/Coding Procedures Urinary/Genital 52xxx-59xxx: 08321-14 non-stress test Interp
--- NOTE | 2024-09-05 13:17 | OB.TRI.NOTE ---
HPI - General General Chief Complaint: NST HPI Narrative ERIN PRATER, is a 23 F who presents at 36.3 with di-di twins for NST. Maternal Data Information HONG Calculator Estimated Delivery Date Method Current WG Current Estimate 09/30/24 LMP (Certain) 36w 3d Other Estimates 10/02/24 Ultrasound #1 36w 1d # 2 PFSH PFSH Medical History Medium chain acyl CoA dehydrogenase deficiency [facility] Medications ?Medication ?Instructions ?Recorded ?Last Taken ?Type PNV 153-FA 400 mcg-om3 35 mg-dha tab PO 02/18/24 Unknown History 25 mg-epa 5 mg-fish oil chew tablet ferrous sulfate 325 mg (65 mg 325 mg PO QDAY 04/27/24 Unknown History iron) tablet breast pump #1 ea 06/29/24 Unknown Rx Allergy/AdvReac Type Severity Reaction Status Date / Time spironolactone (From Allergy Anaphylaxis Verified 09/05/24 08:47 Aldactone) Family History Brother Type 1 diabetes Grandmother Cancer Skin cancer Father High cholesterol Grandfather CVA (cerebral vascular accident) Mother Thyroid disorder Surgical History H/O wisdom tooth extraction Social History adopted: No household members: spouse current occupational status: employed current occupation: Cardiac Ultrasound -[employer] pets and animals: Yes pets and animals: dog(s) history of recent travel: No sexually active: Yes Smoking Status: Never smoker alcohol intake: current alcohol intake frequency: a few times a month details: not while substance use type: does not use well-balanced diet: daily or most days caffeine: Yes (1 Crystal Light) eating out: rarely or never during the past year weight has: remained stable what type of physical activity do you participate in: walking frequency: 1-2 times per week duration: 30-45 minutes/day rosaura/gnosticism: None seatbelt use: always do you feel safe at home: Yes 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 Hx Para 0 Spontaneous abortions Hx # Term Pregnancies Ectopic pregnancies Hx # Pregnancies Multiple births # of living children Visit Details Expected Delivery Route/Plan Labor Preferences- CB/BF classes: [] labor support person: [] labor intervention preferences: [] pain management options preferred: [] cut cord/dad catch: [] : [] PP control planned: [] discussed possible routes of delivery and associated risks: [] special requests: [] Plans Covid status: [] Flu vaccine: [] Tdap vaccine: [] Rhogam: [] LARC form signed: [] Problem list reviewed and updated with the most current plan of care details and appropriate orders placed. Relevant counseling for the gestational age provided. Continue routine care and follow up unless otherwise noted in visit notes/problem list details OB Flowsheet Initial Weight: Not Recorded Date <del>?</del> EGA Weight BP Urine Prot <del>?</del> Glucose FHR FuHt Pres Dilation <del>?</del> Effaced St Visit Note 02/28/24 <del>?</del> 9w 2d 147 lb 4 oz 134/82 <del>?</del> A 169 <del>?</del> B 165 A <del>?</del> B <del>?</del> A <del>?</del> B A JV- CRL 2.34 <del>?</del> B CRL 2.54 both appear to be in completely separate sacs- appear di/di. desires nipt. works at [employer] but wants [facility] ultrasound. 03/31/24 <del>?</del> 13w 6d 146 lb 128/86 Negative <del>?</del> Negative A 153 <del>?</del> B 163 A <del>?</del> B <del>?</del> A <del>?</del> B A KW- no vb/cramping. Do ing well. US ordered <del>?</del> B 04/27/24 <del>?</del> 17w 5d 150 lb 123/81 Negative <del>?</del> Negative A 150 <del>?</del> B 160 A <del>?</del> B <del>?</del> A <del>?</del> B A SM- no vb cramping <del>?</del> B 05/23/24 <del>?</del> 21w 3d 157 lb 126/76 Negative <del>?</del> Negative A 155 <del>?</del> B 144 A <del>?</del> B <del>?</del> A <del>?</del> B A KW- no vb/lof/ctx. good fm. doing well. <del>?</del> B 06/22/24 <del>?</del> 25w 5d 160 lb 4 oz 133/86 Negative <del>?</del> Negative A 140 <del>?</del> B 139 32 A Cephalic <del>?</del> B Cephalic <del>?</del> A <del>?</del> B A JV- no lof, vaginal bleeding, or dec fm. plan gct next visit . has growth scan coming up on tata eve. <del>?</del> B 07/10/24 <del>?</del> 28w 2d 162 lb 6 oz 119/78 Negative <del>?</del> Negative A 145 <del>?</del> B 135 A Cephalic <del>?</del> B Cephalic <del>?</del> A <del>?</del> B A Sm- no vb lof good fm no regular ctx <del>?</del> B 07/27/24 <del>?</del> 30w 5d 165 lb 2 oz 118/75 <del>?</del> A 136 <del>?</del> B 141 A Cephalic <del>?</del> B Breech <del>?</del> A <del>?</del> B A JV- no lof, vaginal bleeding, or dec fm. baby b is breech today. plan nsts on l&D at 36 weeks. <del>?</del> B 08/08/24 <del>?</del> 32w 3d 167 lb 4 oz 117/79 Negative <del>?</del> Negative A 158 <del>?</del> B 143 39 A Cephalic <del>?</del> B Cephalic <del>?</del> A <del>?</del> B A JV- no complaints today. ultrasound reviewed. 2.1% discordance <del>?</del> B 08/22/24 <del>?</del> 34w 3d 170 lb 6 oz 119/78 Negative <del>?</del> Negative A 124 <del>?</del> B 131 A Cephalic <del>?</del> B Cephalic <del>?</del> A <del>?</del> B A JV- no contractions, loss of fluid, bleeding, or dec fm. next growth scan is not until 09/07. plan to bring back next week for gbs. <del>?</del> B 08/29/24 <del>?</del> 35w 3d 176 lb 2 oz 133/86 Negative <del>?</del> Negative A 125 <del>?</del> B 160 A Cephalic <del>?</del> B Cephalic <del>?</del> A <del>?</del> B A SM- no vb lof good fm no reuglar ctx gbs today <del>?</del> B NST FHR Rate Baby A Baseline: 140 Variability:: Moderate Accelerations:: 15 x 15 Decelerations:: None NST Reactive:: Yes FHR Category:: Category I FHR Rate Baby B Baseline: 145 Variability:: Moderate Accelerations:: 15 x 15 Decelerations:: None NST Reactive:: Yes FHR Category:: Category I Uterine Activity:: none Assessment & Plan (1) Dichorionic diamniotic twin gestation: COMMENT: Growth US Q4 weeks per MFM (2) Dichorionic diamniotic twin in second trimester: COMMENT: start testing at 36 weeks PLAN: Plan Patient presents for triage evaluation secondary to NST for twin at 36.3 weeks FHT: Moderate variability reactive no decelerations category I tracing for both fetuses [place]: no Contractions Assessment and plan: Reactive NST, reassuring maternal and status patient discharged to home to follow-up in office. See problem list details for additional plan information. Charges/Coding Procedures Urinary/Genital 52xxx-59xxx: 09760-41 non-stress test Interp
== END 2024-09-05 09:30 | disposition home or self-care (01) ==
LOC: WPOUT 08:33 → WP 08:35
PROVIDERS: PCP Internal Medicine; Referring Provider Registered Nurse; Visit Provider Registered Nurse
DX: O30.003 Twin pregnancy, unspecified number of placenta and unspecified number of amniotic sacs, third trimester (principal); Z3A.36 36 weeks gestation of pregnancy
CPT/HCPCS: 59025; 59050; 99221; G0378

== ENCOUNTER 2024-09-06 12:12 | Outpatient (CLI) | payer OTHER, SELFPAY ==
[2024-09-06] VITALS (14 sets, daily range): BP systolic 127–143; BP diastolic 83–95; PULSE 77–92; RESP 15; TEMP 36.1; O2SAT 99–100
[2024-09-06 13:09] LABS: Hematocrit 39.7 % (37-47); Hemoglobin 13.6 g/dL (12.0-15.0); Mean Corp Hgb Conc 34.3 g/dL (32-36); Mean Corpuscular Hgb 31.1 pg (27.0-32.0); Mean Corpuscular Volume 90.8 fL (81-99); Mean Platelet Vol. 12.8 fl (6.2-12.0); Platelet Count 152 K/mm3 (150-450); RBC Distribution Width CV 12.8 % (11.6-14.6); RBC Distribution Width SD 42.4 fl (35.1-43.9); Red Blood Count 4.37 M/mm3 (4.2-5.4); White Blood Count 10.9 K/mm3 (4.4-11.0)
--- NOTE | 2024-09-06 13:23 | OB.TRI.PN ---
Progress Notes Date of Service: 09/06/24 Progress Note: Patient presents for triage evaluation secondary to elevate dbps FHT: a 130 Moderate variability reactive no decelerations category I tracing b 130-135 Moderate variability reactive no decelerations category I tracing [place]: no regular Contractions Assessment and plan: ghtn Reactive NST, reassuring maternal and status patient discharged to home to follow-up tomorrow in office. See problem list details for additional plan information. Laboratory Studies: Laboratory Tests 09/06/24 Range/Units 12:45 WBC 10.9 (4.4-11.0) K/mm3 RBC 4.37 (4.2-5.4) M/mm3 Hgb 13.6 (12.0-15.0) g/dL Hct 39.7 (37-47) % MCV 90.8 (81-99) fL MCH 31.1 (27.0-32.0) pg MCHC 34.3 (32-36) g/dL RDW Std Deviation 42.4 (35.1-43.9) fl RDW Coeff of Shauna 12.8 (11.6-14.6) % Plt Count 152 (150-450) K/mm3 MPV 12.8 H (6.2-12.0) fl Charges/Coding Procedures Urinary/Genital 52xxx-59xxx: 05648-08 non-stress test Interp
[2024-09-06 13:30] LABS: AST(SGOT) 21 U/L (15-37); Alanine Aminotransfer ALT/SGPT 19 U/L (13-56); Creatinine, Serum 0.67 mg/dL (0.55-1.02); EST Glomerular Filtration Rate 116 mL/min (>60); Est Glom Filt Rate - Afr Amer 141 mL/min (>60); Uric Acid 5.7 mg/dL (2.6-6.0)
[2024-09-06 14:35] LABS: Protein, Urine (Random) 27.5 mg/dL (<11.9); Protein:Creat Ratio 296 mg/g CRE (0-200)
== END 2024-09-06 15:25 | disposition home or self-care (01) ==
LOC: WPOUT 12:25 → WP 12:26
PROVIDERS: PCP Internal Medicine; Referring Provider Obstetrics & Gynecology; Visit Provider Obstetrics & Gynecology
DX: O99.891 Other specified diseases and conditions complicating pregnancy (principal); R03.0 Elevated blood-pressure reading, without diagnosis of hypertension; Z3A.36 36 weeks gestation of pregnancy
CPT/HCPCS: 36415; 59025; 59050; 82565; 82570; 84156; 84450; 84460; 84550; 85027; 99221; G0378

== ENCOUNTER 2024-09-07 15:26 | Inpatient (IN) | payer OTHER, SELFPAY ==
[2024-09-07] VITALS (14 sets, daily range): BP systolic 130–142; BP diastolic 67–91; PULSE 68–110; RESP 16–18; TEMP 36.5–36.9; O2SAT 97–100; BMI 32.0
[2024-09-07 13:46] LABS: Absolute Lymphocyte Count 2.02 X10^3/uL (0.83-4.51); Absolute Neutrophil Count 5.6 X10^3/uL (2.0-7.7); Basophil# 0.01 X10^3/uL; Basophil% 0.1 % (0-1); Eosinophil# 0.03 X10^3/uL; Eosinophils% 0.4 % (0-5); Hematocrit 38.7 % (37-47); Hemoglobin 13.2 g/dL (12.0-15.0); Lymphocyte # 2.02 X10^3/ul (0.83-4.51); Lymphocyte % 24.1 % (19-41); Mean Corp Hgb Conc 34.1 g/dL (32-36); Mean Corpuscular Hgb 31.4 pg (27.0-32.0); Mean Corpuscular Volume 91.9 fL (81-99); Mean Platelet Vol. 12.2 fl (6.2-12.0); Monocyte# 0.66 X10^3/uL; Monocyte% 7.9 % (0-10); NRBC Flagged by Analyzer 0 % (0-5); Neutrophil # 5.62 X10^3/uL (2.7-7.7); Neutrophil % 67.1 % (47-70); Platelet Count 147 K/mm3 (150-450); RBC Distribution Width CV 12.8 % (11.6-14.6); RBC Distribution Width SD 42.9 fl (35.1-43.9); Red Blood Count 4.21 M/mm3 (4.2-5.4); White Blood Count 8.4 K/mm3 (4.4-11.0)
[2024-09-07 13:47] LABS: Protein, Urine (Random) 25.8 mg/dL (<11.9); Protein:Creat Ratio 160 mg/g CRE (0-200)
[2024-09-07 13:52] LABS: ALB/GLOB Ratio 0.8 RATIO (0.9-2.4); AST(SGOT) 20 U/L (15-37); Alanine Aminotransfer ALT/SGPT 19 U/L (13-56); Albumin, Serum 2.9 g/dL (3.2-5.0); Alkaline Phosphatase 191 U/L (45-117); Anion Gap 7 (5-15); BUN 9 mg/dL (7-18); BUN/Creat Ratio 11.7 RATIO (10-20); Calcium,Total 9.3 mg/dL (8.5-10.1); Chloride 106 mmol/L (98-107); Creatinine, Serum 0.77 mg/dL (0.55-1.02); EST Glomerular Filtration Rate 100 mL/min (>60); Est Glom Filt Rate - Afr Amer 120 mL/min (>60); Globulin 3.8 g/dL (2.2-4.2); Glucose 58 mg/dL (74-106); Potassium 3.7 mmol/L (3.5-5.1); Protein, Total 6.7 g/dL (6.4-8.2); Sodium Level 138 mmol/L (136-145)
[2024-09-07] MEDS: Betamethasone/Betamethasone 30 MG/5 ML Vial 12 MG IM (16:20)
[2024-09-07] MEDS: Lactated Ringers 1,000 ML 50 ML IV (16:20)
[2024-09-07] MEDS: Oxytocin 15 Units/NS 250ml 15 UNITS/250 ML IV.SOLN 2 UNITS IV (16:21)
[2024-09-07 17:08] LABS: Syphilis Antibodies Non-reactive
[2024-09-07] MEDS: 0.9% Normal Saline Single 100 ML IV.SOLN. INTRA-UTER (17:25)
[2024-09-07] MEDS: Lactated Ringers 1,000 ML 999 ML IV (20:12)
[2024-09-07 23:00] LABS: Hemoglobin 12.8 g/dL (12.0-15.0); Mean Corp Hgb Conc 35.6 g/dL (32-36); Mean Corpuscular Hgb 32.3 pg (27.0-32.0); Mean Corpuscular Volume 90.9 fL (81-99); Mean Platelet Vol. 12.7 fl (6.2-12.0); Platelet Count 138 K/mm3 (150-450); RBC Distribution Width CV 12.7 % (11.6-14.6); RBC Distribution Width SD 41.8 fl (35.1-43.9); Red Blood Count 3.96 M/mm3 (4.2-5.4); White Blood Count 13.1 K/mm3 (4.4-11.0)
[2024-09-08] VITALS (34 sets, daily range): BP systolic 111–138; BP diastolic 53–92; PULSE 68–105; RESP 16–18; TEMP 36.4–36.8; O2SAT 94–99
[2024-09-08] MEDS: fentaNYL-bupivacaine (epidural) 100 ML BAG EPIDURAL (00:05)
[2024-09-08] MEDS: Terbutaline 1 MG/ML Vial 0.25 MG SC (00:30)
[2024-09-08 02:11] LABS: Hemoglobin 11.5 g/dL (12.0-15.0); Mean Corp Hgb Conc 34.8 g/dL (32-36); Mean Corpuscular Volume 91.9 fL (81-99); Mean Platelet Vol. 12.6 fl (6.2-12.0); Platelet Count 132 K/mm3 (150-450); RBC Distribution Width CV 12.7 % (11.6-14.6); RBC Distribution Width SD 42.5 fl (35.1-43.9); Red Blood Count 3.59 M/mm3 (4.2-5.4); White Blood Count 10.7 K/mm3 (4.4-11.0)
[2024-09-08 02:28] LABS: ALB/GLOB Ratio 0.7 RATIO (0.9-2.4); AST(SGOT) 18 U/L (15-37); Alanine Aminotransfer ALT/SGPT 18 U/L (13-56); Albumin, Serum 2.6 g/dL (3.2-5.0); Alkaline Phosphatase 169 U/L (45-117); Anion Gap 11 (5-15); BUN 10 mg/dL (7-18); BUN/Creat Ratio 11.3 RATIO (10-20); Calcium,Total 9.2 mg/dL (8.5-10.1); Chloride 108 mmol/L (98-107); Creatinine, Serum 0.89 mg/dL (0.55-1.02); EST Glomerular Filtration Rate 84 mL/min (>60); Est Glom Filt Rate - Afr Amer 102 mL/min (>60); Estimated Creatinine Clearance 96.75 ml/min; Globulin 3.5 g/dL (2.2-4.2); Glucose 120 mg/dL (74-106); Potassium 3.5 mmol/L (3.5-5.1); Protein, Total 6.1 g/dL (6.4-8.2); Sodium Level 140 mmol/L (136-145)
--- NOTE | 2024-09-08 02:32 | HP.PCM.OB_ITS ---
HPI - General General Date of Admission: 09/07/24 HPI Narrative ERIN PARTER, is a 23 F who presents with elevated blood pressures and decreased platelets with suspicion for severe gestational hypertension. Di/di twin . Patient does not have a history of gestational thrombocytopenia she has had a normal platelet count the entire . Pressures just started to go up for the last 2 days. Maternal Data Information HONG Calculator Estimated Delivery Date Method Current WG Current Estimate 09/30/24 LMP (Certain) 36w 6d Other Estimates 10/02/24 Ultrasound #1 36w 4d # 2 PFSH PFSH Medical History (Updated 09/07/24 @ 16:[address] 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 Preventative health care Acne Home Medications ?Medication ?Instructions ?Recorded ?Last Taken ?Type PNV 153-FA 400 mcg-om3 35 mg-dha 1 tab PO DAILY pregna ncy 02/18/24 09/06/24 08:00 History 25 mg-epa 5 mg-fish oil chew tablet ferrous sulfate 325 mg (65 mg 325 mg PO QDAY anemia 09/06/24 08:00 History iron) tablet breast pump #1 ea 06/29/24 Unknown Rx Allergy/AdvReac Type Severity Reaction Status Date / Time spironolactone (From Allergy Anaphylaxis Verified 09/07/24 15:25 Aldactone) Family History Brother Type 1 diabetes Grandmother Cancer Skin cancer Father High cholesterol Grandfather CVA (cerebral vascular accident) Mother Thyroid disorder Surgical History H/O wisdom tooth extraction Social History adopted: No household members: spouse current occupational status: employed current occupation: Cardiac Ultrasound -[employer] pets and animals: Yes pets and animals: dog(s) history of recent travel: No sexually active: Yes Smoking Status: Never smoker alcohol intake: current alcohol intake frequency: a few times a month details: not while substance use type: does not use well-balanced diet: daily or most days caffeine: Yes (1 Crystal Light) eating out: rarely or never during the past year weight has: remained stable what type of physical activity do you participate in: walking frequency: 1-2 times per week duration: 30-45 minutes/day rosaura/jainism: None seatbelt use: always do you feel safe at home: Yes additional social history: CJ- [employer] History 1 Elective abortions Hx Para 0 Spontaneous abortions Hx # Term Pregnancies Ectopic pregnancies Hx # Pregnancies Multiple births # of living children Visit Details Expected Delivery Route/Plan Labor Preferences- CB/BF classes: [] labor support person: [] labor intervention preferences: [] pain management options preferred: [] cut cord/dad catch: [] : [] PP control planned: [] discussed possible routes of delivery and associated risks: [] special requests: [] Plans Covid status: [] Flu vaccine: [] Tdap vaccine: [] Rhogam: [] LARC form signed: [] Problem list reviewed and updated with the most current plan of care details and appropriate orders placed. Relevant counseling for the gestational age provided. Continue routine care and follow up unless otherwise noted in visit notes/problem list details OB Flowsheet Initial Weight: Not Recorded Date -?-?-?-?-?-?-?-?-?-?-?-?- EGA Weight BP Urine Prot -?-?-?-?-?-?-?-?-?-?-?-?- Glucose FHR FuHt Pres Dilation -?-?-?-?-?-?-?-?-?-?-?-?- Effaced St Visit Note 02/28/24 -?-?-?-?-?-?-?-?-?-?-?-?- 9w 2d 147 lb 4 oz 134/82 -?-?-?-?-?-?-?-?-?-?-?-?- A 169 -?-?-?-?-?-?-?-?-?-?-?--?- B 165 A -?-?-?-?-?-?-?-?-?-?-?-?- B -?-?-?-?-?-?-?-?-?-?-?-?- A -?-?-?-?-?-?-?-?-?-?-?-?- B A JV- CRL 2.34 -?-?-?-?-?-?-?-?--?-?-?-?- B CRL 2.54 both appear to be i n completely separate sacs- appear di/di. desires nipt. works at [employer] but wants [facility]. 03/31/24 -?-?-?-?-?-?-?-?-?-?-?-?- 13w 6d 146 lb 128/86 Negative -?-?-?-?-?-?-?-?-?-?-?-?- Negative A 153 -?-?-?-?-?-?-?-?-?-?-?-?- B 163 A -?-?-?-?-?-?-?-?-?-?-?-?- B -?-?-?-?-?-?-?-?-?-?-?-?- A -?-?-?-?-?-?-?-?-?-?-?-?- B A KW- no vb/crampi ng. Do ing well. US ordered -?-?-?-?-?-?-?-?-?-?-?-?- B 04/27/24 -?-?-?-?-?-?-?-?-?-?-?-?- 17w 5d 150 lb 123/81 Negative -?-?-?-?-?-?-?-?-?-?-?-?- Negative A 150 -?-?-?-?-?-?-?-?-?-?-?-?- B 160 A -?-?-?-?-?-?-?-?--?-?-?-?- B -?-?-?-?-?-?-?-?-?-?-?-?- A -?-?-?-?-?-?-?-?-?-?-?-?- B A SM- no vb crampi ng -?-?-?-?-?-?-?-?-?-?-?-?- B 05/23/24 -?-?-?-?-?-?-?-?-?-?-?-?- 21w 3d 157 lb 126/76 Negative -?-?-?-?-?-?-?-?-?-?-?-?- Negative A 155 -?-?-?-?-?-?-?-?-?-?-?-?- B 144 A -?-?-?-?-?-?-?--?-?-?-?-?- B -?-?-?-?-?-?-?-?-?-?-?-?- A -?-?-?-?-?-?-?-?-?-?-?-?- B A KW- no vb/lof/ct x. good fm. doing well. -?-?-?-?-?-?-?-?-?-?-?-?- B 06/22/24 -?-?-?-?-?-?-?-?-?-?-?-?- 25w 5d 160 lb 4 oz 133/86 Nega tive -?-?-?-?-?-?-?-?-?-?-?-?- Negative A 140 -?-?-?-?-?-?-?-?-?-?-?-?- B 139 32 A Cephalic -?-?-?-?-?-?-?-?-?-?-?-?- B Cephalic -?-?-?-?-?-?-?-?-?-?-?-?- A -?-?-?-?-?-?-?-?-?-?-?-?- B A JV- no lof, vagi nal bleeding, or dec fm. plan gct next visit . has growth scan coming up on [facility]. -?-?-?-?-?-?-?-?-?-?-?-?- B 07/10/24 -?-?-?-?-?-?-?-?-?-?-?-?- 28w 2d 162 lb 6 oz 119/78 Nega tive -?-?-?-?-?-?-?-?-?-?-?-?- Negative A 145 -?-?-?-?-?-?-?-?-?-?-?-?- B 135 A Cephalic -?-?-?-?-?-?-?-?-?-?-?-?- B Cephalic -?-?-?-?--?-?-?-?-?-?-?-?- A -?-?-?-?-?-?-?-?-?-?-?-?- B A Sm- no vb lof go od fm no regular ctx -?-?-?-?-?-?-?-?-?-?-?-?- B 07/27/24 -?-?-?-?-?-?-?-?-?-?-?-?- 30w 5d 165 lb 2 oz 118/75 -?-?-?-?-?-?-?-?-?-?-?-?- A 136 -?-?-?-?-?-?-?-?-?-?-?-?- B 141 A Cephalic -?-?-?-?-?-?-?-?-?-?-?-?- B Breech -?-?-?-?-?-?-?-?-?-?-?-?- A -?-?-?-?-?-?-?-?-?-?-?-?- B A JV- no lof, vagi nal bleeding, or dec fm. baby b is breech today. plan nsts on l&D at 36 weeks. -?-?-?-?-?-?-?-?-?-?-?-?- B 08/08/24 -?-?-?-?-?-?-?-?-?-?-?-?- 32w 3d 167 lb 4 oz 117/79 Nega tive -?-?-?-?-?-?-?-?-?-?-?-?- Negative A 158 -?-?-?-?-?-?-?-?-?-?-?-?- B 143 39 A Cephalic -?-?-?-?-?-?-?-?-?-?-?-?- B Cephalic -?-?-?-?-?-?-?-?-?-?-?-?- A -?-?-?-?-?-?-?-?-?-?-?-?- B A JV- no complaint s today. ultrasound reviewed. 2.1% discordance -?-?-?-?-?-?-?-?-?-?-?-?- B 08/22/24 -?-?-?-?-?-?-?-?-?-?-?-?- 34w 3d 170 lb 6 oz 119/78 Nega tive -?-?-?-?-?-?-?-?-?-?-?-?- Negative A 124 -?-?-?-?-?-?-?-?-?-?-?-?- B 131 A Cephalic -?-?-?-?-?-?-?-?-?-?-?-?- B Cephalic -?-?-?-?-?-?-?-?-?-?-?-?- A -?-?-?-?-?-?-?-?-?-?-?-?- B A JV- no contracti ons, loss of fluid, bleeding, or dec fm. next growth scan is not until 09/07. plan to bring back next week for gbs. -?-?-?-?-?-?-?-?-?-?-?-?- B 08/29/24 -?-?-?-?-?-?-?-?-?-?-?-?- 35w 3d 176 lb 2 oz 133/86 Nega tive -?-?-?-?-?-?-?-?-?-?-?-?- Negative A 125 -?-?-?-?-?-?-?-?-?-?-?-?- B 160 A Cephalic -?-?-?-?-?-?-?-?-?-?-?-?- B Cephalic -?-?-?-?-?-?-?-?-?-?-?-?- A -?-?-?-?-?-?-?-?-?-?-?-?- B A SM- no vb lof go od fm no reuglar ctx gbs today -?-?-?-?-?-?-?-?-?-?-?-?- B 09/06/24 -?-?-?-?-?-?-?-?-?-?-?-?- 36w 4d 175 lb 2 oz 144/88 Trac e -?-?--?-?-?-?-?-?-?-?-?-?- Negative A 124 -?-?-?-?-?-?-?-?-?-?-?-?- B 128 A -?-?-?-?-?-?-?-?-?-?-?-?- B -?-?-?-?-?-?-?-?-?-?-?-?- A -?-?-?-?-?-?-?-?-?-?-?-?- B A KW- no GRAMAJO, anna still, BV. had elevated bp at work-140/90. to [facility] for labs -?-?-?-?-?-?-?-?-?-?-?-?- B 09/07/24 -?-?-?-?-?-?-?-?-?-?-?-?- 36w 5d 176 lb 2 oz 148/89 Trac e -?-?-?-?-?-?-?-?-?-?-?-?- Negative A 138 -?-?-?-?-?-?-?-?-?-?-?-?- B 125 A -?-?-?-?-?-?-?-?-?-?-?-?- B -?-?-?-?-?-?-?-?-?-?-?-?- A -?-?-?-?-?-?-?-?-?-?-?-?- B A SM- no gramajo bv goo d fm no regular ctx labs abnl will plan on IOL now -?-?-?-?-?-?-?-?-?-?-?-?- B NST FHR Rate Baby A Baseline: 130 Variability:: Moderate Accelerations:: 15 x 15 Decelerations:: None NST Reactive:: Yes FHR Category:: Category I Uterine Activity:: irregular FHR Rate Baby B Baseline: 130 Variability:: Moderate Accelerations:: 15 x 15 Decelerations:: None NST Reactive:: Yes FHR Category:: Category I ROS Constitutional Constitutional: Reports systems reviewed and no addt'l complaints, except as documented Eyes Eyes: Denies change in vision ENT HEENT: Reports systems reviewed and no addt'l complaints, except as documented; Denies headache(s) Cardiovascular Cardiovascular: Reports systems reviewed and no addt'l complaints, except as documented; Denies chest pain or dyspnea Respiratory/Chest Respiratory/Chest: Reports systems reviewed and no addt'l complaints, except as documented Gastrointestinal Gastrointestinal: Reports systems reviewed and no addt'l complaints, except as documented; Denies abdominal pain Genitourinary Genitourinary: Reports systems reviewed and no addt'l complaints, except as docu mented, contractions Details: present (irregular) and movement Details: present; Denies dysuria or genital lesions Musculoskeletal Musculoskeletal: Reports systems reviewed and no addt'l complaints, except as documented Neurologic Neurologic: Reports systems reviewed and no addt'l complaints, except as documented Endocrine Endocrinology: Reports systems reviewed and no addt'l complaints, except as documented Vital Signs Vital Signs Vital Signs: 09/07/24 15:30 09/07/24 15:30 09/07/24 15:31 Temperature Temperature Source Temporal Pulse Rate 80 Respiratory Rate Blood Pressure 130/77 H BP Systolic 130 BP Diastolic 77 Pulse Ox 09/07/24 15:31 09/07/24 15:31 09/07/24 15:31 Temperature Temperature Source Pulse Rate 80 Respiratory Rate 16 Blood Pressure 130/77 H BP Systolic 130 BP Diastolic 77 Pulse Ox 09/07/24 15:31 09/07/24 15:31 09/07/24 16:51 Temperature 98.5 F Temperature Source Pulse Rate Respiratory Rate Blood Pressure 134/86 H BP Systolic 134 BP Diastolic 86 Pulse Ox 98 09/07/24 16:51 09/07/24 18:18 09/07/24 18:18 Temperature Temperature Source Pulse Rate 83 75 Respiratory Rate Blood Pressure 132/84 H BP Systolic 132 BP Diastolic 84 Pulse Ox 09/07/24 21:16 09/07/24 21:16 09/07/24 21:16 Temperature Temperature Source Temporal Pulse Rate 68 Respiratory Rate Blood Pressure 132/67 H BP Systolic 132 BP Diastolic 67 Pulse Ox 09/07/24 21:16 09/07/24 21:16 09/07/24 22:24 Temperature 97.8 F Temperature Source Pulse Rate Respiratory Rate 18 Blood Pressure 138/87 H BP Systolic 138 BP Diastolic 87 Pulse Ox 09/07/24 22:24 09/07/24 23:39 09/07/24 23:39 Temperature Temperature Source Pulse Rate 81 78 Respiratory Rate Blood Pressure BP Systolic BP Diastolic Pulse Ox 99 09/07/24 23:42 09/07/24 23:42 09/07/24 23:42 Temperature Temperature Source Temporal Pulse Rate 76 Respiratory Rate Blood Pressure 137/86 H BP Systolic 137 BP Diastolic 86 Pulse Ox 09/07/24 23:42 09/07/24 23:42 09/07/24 23:44 Temperature 97.7 F L Temperature Source Pulse Rate 91 Respiratory Rate 16 Blood Pressure BP Systolic BP Diastolic Pulse Ox 09/07/24 23:44 09/07/24 23:49 09/07/24 23:49 Temperature Temperature Source Pulse Rate 110 H Respiratory Rate Blood Pressure BP Systolic BP Diastolic Pulse Ox 100 97 09/07/24 23:52 09/07/24 23:52 09/07/24 23:54 Temperature Temperature Source Pulse Rate 107 H 93 Respiratory Rate Blood Pressure 142/91 H BP Systolic 142 BP Diastolic 91 Pulse Ox 09/07/24 23:54 09/07/24 23:56 09/07/24 23:56 Temperature Temperature Source Pulse Rate 87 Respiratory Rate Blood Pressure 131/84 H BP Systolic 131 BP Diastolic 84 Pulse Ox 100 09/07/24 23:59 09/07/24 23:59 09/07/24 23:59 Temperature Temperature Source Pulse Rate 102 H Respiratory Rate 18 Blood Pressure BP Systolic BP Diastolic Pulse Ox 99 09/08/24 00:01 09/08/24 00:01 09/08/24 00:04 Temperature Temperature Source Pulse Rate 100 100 Respiratory Rate Blood Pressure 138/82 H BP Systolic 138 BP Diastolic 82 Pulse Ox 09/08/24 00:04 09/08/24 00:04 09/08/24 00:06 Temperature Temperature Source Pulse Rate Respiratory Rate 16 Blood Pressure 132/77 H BP Systolic 132 BP Diastolic 77 Pulse Ox 99 09/08/24 00:06 09/08/24 00:09 09/08/24 00:09 Temperature Temperature Source Pulse Rate 90 95 Respiratory Rate Blood Pressure BP Systolic BP Diastolic Pulse Ox 97 09/08/24 00:09 09/08/24 00:11 09/08/24 00:11 Temperature Temperature Source Pulse Rate 94 Respiratory Rate 18 Blood Pressure 133/82 H BP Systolic 133 BP Diastolic 82 Pulse Ox 09/08/24 00:14 09/08/24 00:14 09/08/24 00:17 Temperature Temperature Source Pulse Rate 92 Respiratory Rate Blood Pressure 136/82 H BP Systolic 136 BP Diastolic 82 Pulse Ox 97 09/08/24 00:17 09/08/24 00:21 09/08/24 00:21 Temperature Temperature Source Pulse Rate 83 95 Respiratory Rate Blood Pressure 137/60 H BP Systolic 137 BP Diastolic 60 Pulse Ox 09/08/24 00:21 09/08/24 00:24 09/08/24 00:25 Temperature Temperature Source Temporal Pulse Rate Respiratory Rate 18 Blood Pressure BP Systolic BP Diastolic Pulse Ox 94 09/08/24 00:25 09/08/24 00:25 09/08/24 00:26 Temperature 97.7 F L Temperature Source Pulse Rate Respiratory Rate 16 Blood Pressure 111/53 L BP Systolic 111 BP Diastolic 53 Pulse Ox 09/08/24 00:26 09/08/24 00:26 09/08/24 00:29 Temperature Temperature Source Pulse Rate 80 Respiratory Rate 16 Blood Pressure BP Systolic BP Diastolic Pulse Ox 98 09/08/24 00:30 09/08/24 00:31 09/08/24 00:31 Temperature Temperature Source Pulse Rate 89 77 Respiratory Rate Blood Pressure BP Systolic BP Diastolic Pulse Ox 98 09/08/24 00:34 09/08/24 00:36 09/08/24 00:36 Temperature Temperature Source Pulse Rate 93 Respiratory Rate 18 Blood Pressure 116/58 L BP Systolic 116 BP Diastolic 58 Pulse Ox 09/08/24 00:36 09/08/24 02:05 09/08/24 02:05 Temperature Temperature Source Temporal Pulse Rate Respiratory Rate 16 Blood Pressure BP Systolic BP Diastolic Pulse Ox 97 09/08/24 02:05 09/08/24 02:07 09/08/24 02:07 Temperature 97.7 F L Temperature Source Pulse Rate 86 Respiratory Rate Blood Pressure 118/71 BP Systolic 118 BP Diastolic 71 Pulse Ox Weight Weight: 175 lb Body Mass Index (BMI) 32.0 Physical Exam Const alert, oriented x3, no apparent distress and healthy appearing HEENT normocephalic and moist oral mucous membranes Head and Scalp: atraumatic Neck full ROM, no lymphadenopathy, supple and thyroid normal General: trachea midline Lymph Lymphatic: no lymphadenopathy noted Chest inspection of chest normal Resp normal respiratory effort Cardio regular rate GI soft to palpation and non-tender GI Narrative: gravid Inspection: gravid external exam normal Manual OB Exam: estimated gestational size appropriate, presentation cephalic, dilated, effaced and station Extremity normal to inspection General Extremity: Negative for edema Skin no rashes or lesions noted Neuro no focal motor deficits and deep tendon reflexes 2+ bilaterally Motor Exam: strength 5/5 throughout and clonus absent Psych mental status grossly normal Labs Labs Labs: Blood Type A POSITIVE Antibody Screen NEGATIVE Hct 33.0 % (37-47) L Hgb 11.5 g/dL (12.0-15.0) L Syphilis Total Ab Non-reactive VZV IgG Antibody 199 index (Immune >165) Rubella IgG Antibody Reactive (Nonreactive) Hep Bs Antigen Non-Reactive (Nonreactive) Hepatitis C Antibody Non-Reactive (Nonreactive) Chlamydia DNA (UNA) Negative (Negative) N.gonorrhoeae DNA (UNA) Negative (Negative) HIV 1&2 Antibody Non-Reactive (Nonreactive) Glucose 1 Hr 50 gm 141 mg/dL (70-140) H Gest Glucose Tolerance MG/DL Assessment & Plan (1) Gestational HTN: COMMENT: severe with thrombocytopenia, proceed with delivery. 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 Saw ID who did not treat pt. PLAN: Plan Patient presents IOL, plan management for with pitocin/AROM. Pain management: plans epidural. GBS negative. Management of any complications: monitor serial labs, start magnesium if severe range pressure or neuro symptoms I have reviewed the [facility] and made any clinically relevant updates.
[2024-09-08] MEDS: Lactated Ringers 1,000 ML 200 ML IV (02:38)
--- NOTE | 2024-09-08 02:41 | PCM.PN.BLA ---
Progress Note cat I tracing, clear fluid AROM bps nl to mildly elevated, repeat labs platelets dropped but above 100, stable in 130s, nl CMP. continue pit per protocol.
[2024-09-08] MEDS: Amnioinfusion- 0.9% NS 1,000 ML IV.SOLN. 1000 ML INTRA-UTER (09:12)
[2024-09-08] MEDS: Oxytocin 15 Units/NS 250ml 15 UNITS/250 ML IV.SOLN 83 UNITS IV (09:56)
--- NOTE | 2024-09-08 10:19 | RAD_ITS ---
PROCEDURE: ABDOMEN SINGLE VIEW (PORTABLE) REASON FOR EXAM: Missing laparotomy sponge. TECHNIQUE: Single view abdomen. COMPARISON: None FINDINGS: Bowel gas pattern is normal. No evidence of bowel obstruction. No suspicious calcifications. The bones are unremarkable. No radiopaque foreign bodies. RAD/Abdomen Single View (Portable) IMPRESSION: NEGATIVE KUB. Reading Location: [facility]
--- NOTE | 2024-09-08 10:33 | NURSING ---
missing one sponge, plan to get xray when patient in room.
[2024-09-08 11:02] LABS: Absolute Lymphocyte Count 1.57 X10^3/uL (0.83-4.51); Absolute Neutrophil Count 14.7 X10^3/uL (2.0-7.7); Basophil# 0.05 X10^3/uL; Basophil% 0.3 % (0-1); Eosinophil# 0.03 X10^3/uL; Eosinophils% 0.2 % (0-5); Hematocrit 34.2 % (37-47); Lymphocyte # 1.57 X10^3/ul (0.83-4.51); Lymphocyte % 8.8 % (19-41); Mean Corp Hgb Conc 35.1 g/dL (32-36); Mean Corpuscular Hgb 32.2 pg (27.0-32.0); Mean Corpuscular Volume 91.7 fL (81-99); Mean Platelet Vol. 12.3 fl (6.2-12.0); Monocyte# 1.37 X10^3/uL; Monocyte% 7.7 % (0-10); NRBC Flagged by Analyzer 0 % (0-5); Neutrophil # 14.71 X10^3/uL (2.7-7.7); Neutrophil % 82.6 % (47-70); Platelet Count 138 K/mm3 (150-450); RBC Distribution Width CV 12.8 % (11.6-14.6); RBC Distribution Width SD 42.5 fl (35.1-43.9); Red Blood Count 3.73 M/mm3 (4.2-5.4); White Blood Count 17.8 K/mm3 (4.4-11.0)
[2024-09-08 11:19] LABS: ALB/GLOB Ratio 0.8 RATIO (0.9-2.4); AST(SGOT) 38 U/L (15-37); Alanine Aminotransfer ALT/SGPT 24 U/L (13-56); Albumin, Serum 2.5 g/dL (3.2-5.0); Alkaline Phosphatase 161 U/L (45-117); Anion Gap 10 (5-15); BUN 9 mg/dL (7-18); BUN/Creat Ratio 11.3 RATIO (10-20); Calcium,Total 9.3 mg/dL (8.5-10.1); Chloride 111 mmol/L (98-107); EST Glomerular Filtration Rate 95 mL/min (>60); Est Glom Filt Rate - Afr Amer 115 mL/min (>60); Estimated Creatinine Clearance 107.63 ml/min; Globulin 3.3 g/dL (2.2-4.2); Glucose 83 mg/dL (74-106); Potassium 4.1 mmol/L (3.5-5.1); Protein, Total 5.8 g/dL (6.4-8.2); Sodium Level 142 mmol/L (136-145)
[2024-09-08] MEDS: Naproxen 500 MG Tablet PO (12:29)
--- NOTE | 2024-09-08 17:43 | NURSING ---
Platelet count repeated at 1050 and resulted 138, up from 132 earlier this morning. Discussed with Denver Ruby CRNA to take epidural cath out. Notified Dr. Beaulieu results were back and anesthesia confirmed to remove. At 1130, epidural catheter removed tip intact. sterile bandage applied.
[2024-09-08] MEDS: Acetaminophen 500 MG Tablet 1000 MG PO (18:26)
[2024-09-09 01:05] VITALS: BP 131/88; PULSE 88; RESP 18; TEMP 36.6; O2SAT 96
[2024-09-09 04:29] VITALS: BP 129/91; PULSE 76; RESP 18; TEMP 36.5; O2SAT 98
[2024-09-09 04:54] LABS: Absolute Neutrophil Count 9.2 X10^3/uL (2.0-7.7); Basophil# 0.02 X10^3/uL; Basophil% 0.2 % (0-1); Eosinophil# 0.01 X10^3/uL; Eosinophils% 0.1 % (0-5); Hematocrit 31.1 % (37-47); Mean Corp Hgb Conc 35.4 g/dL (32-36); Mean Corpuscular Hgb 32.3 pg (27.0-32.0); Mean Corpuscular Volume 91.2 fL (81-99); Mean Platelet Vol. 11.8 fl (6.2-12.0); Monocyte# 0.88 X10^3/uL; Monocyte% 6.8 % (0-10); NRBC Flagged by Analyzer 0 % (0-5); Neutrophil # 9.17 X10^3/uL (2.7-7.7); Neutrophil % 71.3 % (47-70); Platelet Count 112 K/mm3 (150-450); RBC Distribution Width CV 13.1 % (11.6-14.6); RBC Distribution Width SD 42.8 fl (35.1-43.9); Red Blood Count 3.41 M/mm3 (4.2-5.4); White Blood Count 12.9 K/mm3 (4.4-11.0)
[2024-09-09 05:42] LABS: ALB/GLOB Ratio 0.8 RATIO (0.9-2.4); AST(SGOT) 52 U/L (15-37); Alanine Aminotransfer ALT/SGPT 33 U/L (13-56); Albumin, Serum 2.3 g/dL (3.2-5.0); Alkaline Phosphatase 135 U/L (45-117); BUN 11 mg/dL (7-18); BUN/Creat Ratio 12.2 RATIO (10-20); Calcium,Total 8.6 mg/dL (8.5-10.1); EST Glomerular Filtration Rate 83 mL/min (>60); Est Glom Filt Rate - Afr Amer 101 mL/min (>60); Estimated Creatinine Clearance 95.67 ml/min; Globulin 2.9 g/dL (2.2-4.2); Glucose 80 mg/dL (74-106); Protein, Total 5.2 g/dL (6.4-8.2)
[2024-09-09 05:43] LABS: Anion Gap 7 (5-15); Chloride 111 mmol/L (98-107); Sodium Level 141 mmol/L (136-145)
--- NOTE | 2024-09-09 08:50 | PCM.PN.OB ---
Subjective Subjective Patient doing well without complaints. Tolerating PO. Ambulating and voiding without difficulty. Feeding well. Denies chest pain, shortness of breath, calf pain/swelling, fevers, chills, lightheadedness. Objective Data Objective Data Vital Signs: Vital Signs Temp Pulse Resp BP Pulse Ox O2 Del Method 97.7 F L 76 18 129/91 H 98 Room Air 09/09/24 04:29 09/09/24 04:29 09/09/24 04:29 09/09/24 04:29 09/09/24 04:29 09/09/24 04:29 Oxygen Delivery Method Room Air Weight: 175 lb Body Mass Index (BMI) 32.0 Intake & Output: Intake and Output for Last 24 Hours 09/07/24 09/08/24 09/09/24 23:59 23:59 23:59 Intake Total 1363.58 / 1363.58 2049.42 / 2049.42 Output Total 2200 / 2200 Balance 1363.58 / 1363.58 -150.58 / -150.58 Lab / Micro Data 09/09/24 04:30 09/09/24 04:30 Labs: Laboratory Results - last 24 hr 09/08/24 04:30: Sodium Cancelled, Potassium Cancelled, Chloride Cancelled, Carbon Dioxide Cancelled, Anion Gap Cancelled, BUN Cancelled, Creatinine Cancelled, Estim Creat Clear Calc Cancelled, Est GFR (MDRD) Af Amer Cancelled, Est GFR (MDRD) Non-Af Cancelled, BUN/Creatinine Ratio Cancelled, Glucose Cancelled, Calcium Cancelled, Total Bilirubin Cancelled, AST Cancelled, ALT Cancelled, Alkaline Phosphatase Cancelled, Total Protein Cancelled, Albumin Cancelled, Globulin Cancelled, Albumin/Globulin Ratio Cancelled 09/08/24 10:50: WBC 17.8 H, RBC 3.73 L, Hgb 12.0, Hct 34.2 L, MCV 91.7, MCH 32.2 H, MCHC 35.1, RDW Std Deviation 42.5, RDW Coeff of Shauna 12.8, Plt Count 138 L, MPV 12.3 H, Immature Gran % (Auto) 0.400, Neut % (Auto) 82.6 H, Lymph % (Auto) 8.8 L, Mcduffie % (Auto) 7.7, Eos % (Auto) 0.2, Baso % (Auto) 0.3, Absolute Neuts (auto) 14.7 H, Absolute Lymphs (auto) 1.57, Nucleated RBC % 0, Sodium 142, Potassium 4.1, Chloride 111 H, Carbon Dioxide 21.0, Anion Gap 10, BUN 9, Creatinine 0.80, Estim Creat Clear Calc 107.63, Est GFR (MDRD) Af Amer 115, Est GFR (MDRD) Non-Af 95, BUN/Creatinine Ratio 11.3, Glucose 83, Calcium 9.3, Total Bilirubin 0.50, AST 38 H, ALT 24, Alkaline Phosphatase 161 H, Total Protein 5.8 L, Albumin 2.5 L, Globulin 3.3, Albumin/Globulin Ratio 0.8 L 09/09/24 04:30: WBC 12.9 H, RBC 3.41 L, Hgb 11.0 L, Hct 31.1 L, MCV 91.2, MCH 32.3 H, MCHC 35.4, RDW Std Deviation 42.8, RDW Coeff of Shauna 13.1, Plt Count 112 L, MPV 11.8, Immature Gran % (Auto) 0.600, Neut % (Auto) 71.3 H, Lymph % (Auto) 21.0, Mcduffie % (Auto) 6.8, Eos % (Auto) 0.1, Baso % (Auto) 0.2, Absolute Neuts (auto) 9.2 H, Absolute Lymphs (auto) 2.70, Nucleated RBC % 0, Sodium 141, Potassium 4.0, Chloride 111 H, Carbon Dioxide 23.0, Anion Gap 7, BUN 11, Creatinine 0.90, Estim Creat Clear Calc 95.67, Est GFR (MDRD) Af Amer 101, Est GFR (MDRD) Non-Af 83, BUN/Creatinine Ratio 12.2, Glucose 80, Calcium 8.6, Total Bilirubin 0.30, AST 52 H, ALT 33, Alkaline Phosphatase 135 H, Total Protein 5.2 L, Albumin 2.3 L, Globulin 2.9, Albumin/Globulin Ratio 0.8 L Radiography Diagnostic Testing: Radiology Impression KUB X-Ray 09/08/24 10:19 IMPRESSION: NEGATIVE KUB. Reading Location: [facility] Constitutional Constitutional: Reports systems reviewed and no addt'l complaints, except as documented; Denies anorexia or headache(s) Cardiovascular Cardiovascular: Reports systems reviewed and no addt'l complaints, except as documented; Denies dizziness, dyspnea, nausea or tachypnea Respiratory/Chest Respiratory/Chest: Reports systems reviewed and no addt'l complaints, except as documented; Denies cough, dyspnea, shortness of breath at rest or tachypnea Gastrointestinal Gastrointestinal: Reports systems reviewed and no addt'l complaints, except as documented; Denies abdominal pain, constipation or nausea Genitourinary Genitourinary: Reports systems reviewed and no addt'l complaints, except as documented; Denies burning urination, difficulty urinating, dysuria, urinary frequency or urinary incontinence Musculoskeletal Musculoskeletal: Reports systems reviewed and no addt'l complaints, except as documented Integumentary Integumentary: Reports systems reviewed and no addt'l complaints, except as documented Neurologic Neurologic: Reports systems reviewed and no addt'l complaints, except as documented; Denies abnormal speech, dizziness or headache(s) Psychiatric Psychiatric: Reports systems reviewed and no addt'l complaints, except as documented Endocrine Endocrinology: Reports systems reviewed and no addt'l complaints, except as documented Hematologic/Lymphatic Hematologic/Lymphatic: Reports systems reviewed and no addt'l complaints, except as documented Physical Exam Const alert, oriented x3 and no apparent distress Neck full ROM Resp normal respiratory effort, normal air movement and no retractions Effort and Inspection: able to speak in complete sentences and symmetric chest movement GI soft to palpation Bladder / Kidney Exam: bladder normal to palpation Uterus Palpation: uterus fundus firm Extremity normal to inspection and full ROM Psych mental status grossly normal, thought process normal and cooperative Assessment & Plan (1) Twin delivered vaginally: COMMENT: sm 36.6 Boys Walker & Raul PLAN: s/p PPD # 1 1. routine post delivery care 2. breast feeding- support given 3. rh positive 4. rubella immune 5. Monitor BP and CBC/CMP (2) Gestational HTN: COMMENT: severe with thrombocytopenia, proceed with delivery. (3) Thrombocytopenia affecting : (4) Abnormal glucose affecting : COMMENT: passed 3 hour gct (5) Dichorionic diamniotic twin gestation: COMMENT: Growth US Q4 weeks per MFM (6) Dichorionic diamniotic twin in second trimester: COMMENT: start testing at 36 weeks (7) Abnormal thyroid function test: (8) Twin gestation in first trimester: COMMENT: appears di/di - will confirm with NIPT and MFM scan (9) Supervision of high-risk : COMMENT: PRR, , HONG 09/30/24, boys CJ (10) Family history of autism in sibling: COMMENT: Brother, mild (11) Hx of exposure to tuberculosis: COMMENT: has tested + with blood test but Negative with skin test. Saw ID who did not treat pt. 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
--- NOTE | 2024-09-09 08:54 | DCINST_ITS ---
Discharge Instructions Diet Discharge Diet: No restrictions DC O2, CPAP, BIPAP needs Home O2 Discharge instructions: No Dressing / Incision Discharge Activity: Return to Normal Activity May resume sexual activity in: 6-8 weeks Dressing / Incision Call your doctor if you observe: Fever of 101 or Higher, Coldness, Increased Pain, Numbness or Tingling, Change in Color, Inability to urinate, Inability to have a bowel movement, Using more than 1 pad per hour, Shortness of breath, Dizziness, Fainting spells, Swelling in the ankles, Chest pain, Increased p alpitations (irregular heartbeat), Calf discomfort and Uncontrolled pain Follow Up Care Please Follow Up With: Yue Francisco CNM When: Please call the office to schedule your follow up appointment in 6 weeks. If you had high blood pressure please call to schedule an appointment in 2 weeks. Test Results: Test results from this visit will be discussed in further detail at your follow- up appointment, if applicable. Discharge Plan Admission Admit Date/Time: 09/07/24 15:26 Attending Provider: Tricia Beaulieu Primary Care Provider: Antwon Bowens Discharge Orders/Prescriptions Prescriptions: No Action PNV no.[id number] 400 mcg-35 mg- 25 mg-5 mg tablet,chewable 1 tab PO DAILY ferrous sulfate 325 mg (65 mg iron) tablet 325 mg PO QDAY (DME) breast pump Device See Rx Instructions .Route Qty: 1 0RF Rx Instructions: As directed, may sub for whatever brand is covered by insurance Referrals / Follow Up: Antwon Bowens MD [Primary Care Provider] -
[2024-09-09] MEDS: Acetaminophen 500 MG Tablet 1000 MG PO (09:12)
[2024-09-09 09:57] VITALS: BP 120/86; PULSE 88; RESP 16; TEMP 36.3; O2SAT 97
[2024-09-09 12:35] LABS: Hematocrit 30.3 % (37-47); Hemoglobin 10.5 g/dL (12.0-15.0); Mean Corp Hgb Conc 34.7 g/dL (32-36); Mean Corpuscular Volume 92.4 fL (81-99); Mean Platelet Vol. 11.9 fl (6.2-12.0); Platelet Count 119 K/mm3 (150-450); RBC Distribution Width SD 43.6 fl (35.1-43.9); Red Blood Count 3.28 M/mm3 (4.2-5.4); White Blood Count 13.2 K/mm3 (4.4-11.0)
[2024-09-09 12:51] LABS: ALB/GLOB Ratio 0.8 RATIO (0.9-2.4); AST(SGOT) 45 U/L (15-37); Alanine Aminotransfer ALT/SGPT 34 U/L (13-56); Albumin, Serum 2.3 g/dL (3.2-5.0); Alkaline Phosphatase 126 U/L (45-117); Anion Gap 7 (5-15); BUN 10 mg/dL (7-18); BUN/Creat Ratio 14.6 RATIO (10-20); Calcium,Total 8.5 mg/dL (8.5-10.1); Chloride 109 mmol/L (98-107); Creatinine, Serum 0.69 mg/dL (0.55-1.02); EST Glomerular Filtration Rate 113 mL/min (>60); Est Glom Filt Rate - Afr Amer 137 mL/min (>60); Estimated Creatinine Clearance 124.79 ml/min; Globulin 2.8 g/dL (2.2-4.2); Glucose 97 mg/dL (74-106); Potassium 3.8 mmol/L (3.5-5.1); Protein, Total 5.1 g/dL (6.4-8.2); Sodium Level 139 mmol/L (136-145)
[2024-09-09 19:40] VITALS: BP 130/82; PULSE 82; RESP 16; TEMP 36.4; O2SAT 98
[2024-09-10 02:30] VITALS: BP 130/86; PULSE 96; RESP 16; TEMP 36.9; O2SAT 98
[2024-09-10 05:48] LABS: Absolute Lymphocyte Count 2.72 X10^3/uL (0.83-4.51); Absolute Neutrophil Count 7.7 X10^3/uL (2.0-7.7); Basophil# 0.03 X10^3/uL; Basophil% 0.3 % (0-1); Eosinophil# 0.08 X10^3/uL; Eosinophils% 0.7 % (0-5); Hematocrit 30.8 % (37-47); Hemoglobin 10.8 g/dL (12.0-15.0); Lymphocyte # 2.72 X10^3/ul (0.83-4.51); Mean Corp Hgb Conc 35.1 g/dL (32-36); Mean Corpuscular Hgb 32.1 pg (27.0-32.0); Mean Corpuscular Volume 91.7 fL (81-99); Mean Platelet Vol. 12.1 fl (6.2-12.0); Monocyte# 0.72 X10^3/uL; Monocyte% 6.3 % (0-10); NRBC Flagged by Analyzer 0 % (0-5); Neutrophil # 7.71 X10^3/uL (2.7-7.7); Platelet Count 122 K/mm3 (150-450); RBC Distribution Width SD 42.5 fl (35.1-43.9); Red Blood Count 3.36 M/mm3 (4.2-5.4); White Blood Count 11.3 K/mm3 (4.4-11.0)
[2024-09-10 06:11] LABS: ALB/GLOB Ratio 0.8 RATIO (0.9-2.4); AST(SGOT) 37 U/L (15-37); Alanine Aminotransfer ALT/SGPT 32 U/L (13-56); Albumin, Serum 2.4 g/dL (3.2-5.0); Alkaline Phosphatase 123 U/L (45-117); Anion Gap 6 (5-15); BUN 8 mg/dL (7-18); BUN/Creat Ratio 12.4 RATIO (10-20); Calcium,Total 8.5 mg/dL (8.5-10.1); Chloride 108 mmol/L (98-107); Creatinine, Serum 0.65 mg/dL (0.55-1.02); EST Glomerular Filtration Rate 121 mL/min (>60); Est Glom Filt Rate - Afr Amer 146 mL/min (>60); Estimated Creatinine Clearance 132.47 ml/min; Glucose 84 mg/dL (74-106); Potassium 3.8 mmol/L (3.5-5.1); Protein, Total 5.4 g/dL (6.4-8.2); Sodium Level 140 mmol/L (136-145)
[2024-09-10 08:39] VITALS: BP 127/80; PULSE 82; RESP 18; TEMP 36.7; O2SAT 96
--- NOTE | 2024-09-10 12:51 | PCM.PN.OB ---
Subjective Subjective Patient doing well without complaints. Tolerating PO. Ambulating and voiding without difficulty. Feeding well. Denies chest pain, shortness of breath, calf pain/swelling, fevers, chills, lightheadedness. Objective Data Objective Data Vital Signs: Vital Signs Temp Pulse Resp BP Pulse Ox O2 Del Method 98.0 F 82 18 127/80 H 96 Room Air 09/10/24 08:39 09/10/24 08:39 09/10/24 08:39 09/10/24 08:39 09/10/24 08:39 09/10/24 08:39 Oxygen Delivery Method Room Air Weight: 175 lb Body Mass Index (BMI) 32.0 Intake & Output: Intake and Output for Last 24 Hours 09/08/24 09/09/24 09/10/24 23:59 23:59 23:59 Intake Total 2049.42 / 2049.42 Output Total 2200 / 2200 Balance -150.58 / -150.58 Lab / Micro Data Attestation: I reviewed the patient's lab results. 09/10/24 05:25 09/10/24 05:25 Labs: Laboratory Results - last 24 hr 09/09/24 12:05: Sodium 139, Potassium 3.8, Chloride 109 H, Carbon Dioxide 23.0, Anion Gap 7, BUN 10, Creatinine 0.69, Estim Creat Clear Calc 124.79, Est GFR (MDRD) Af Amer 137, Est GFR (MDRD) Non-Af 113, BUN/Creatinine Ratio 14.6, Glucose 97, Calcium 8.5, Total Bilirubin 0.20, AST 45 H, ALT 34, Alkaline Phosphatase 126 H, Total Protein 5.1 L, Albumin 2.3 L, Globulin 2.8, Albumin/Globulin Ratio 0.8 L 09/10/24 05:25: WBC 11.3 H, RBC 3.36 L, Hgb 10.8 L, Hct 30.8 L, MCV 91.7, MCH 32.1 H, MCHC 35.1, RDW Std Deviation 42.5, RDW Coeff of Shauna 13.0, Plt Count 122 L, MPV 12.1 H, Immature Gran % (Auto) 0.700, Neut % (Auto) 68.0, Lymph % (Auto) 24.0, [place] % (Auto) 6.3, Eos % (Auto) 0.7, Baso % (Auto) 0.3, Absolute Neuts (auto) 7.7, Absolute Lymphs (auto) 2.72, Nucleated RBC % 0, Sodium 140, Potassium 3.8, Chloride 108 H, Carbon Dioxide 26.0, Anion Gap 6, BUN 8, Creatinine 0.65, Estim Creat Clear Calc 132.47, Est GFR (MDRD) Af Amer 146, Est GFR (MDRD) Non-Af 121, BUN/Creatinine Ratio 12.4, Glucose 84, Calcium 8.5, Total Bilirubin 0.30, AST 37, ALT 32, Alkaline Phosphatase 123 H, Total Protein 5.4 L, Albumin 2.4 L, Globulin 3.0, Albumin/Globulin Ratio 0.8 L ROS Constitutional Constitutional: Reports systems reviewed and no addt'l complaints, except as documented; Denies anorexia or headache(s) Cardiovascular Cardiovascular: Reports systems reviewed and no addt'l complaints, except as documented; Denies dizziness, dyspnea, nausea or tachypnea Respiratory/Chest Respiratory/Chest: Reports systems reviewed and no addt'l complaints, except as documented; Denies cough, dyspnea, shortness of breath at rest or tachypnea Gastrointestinal Gastrointestinal: Reports systems reviewed and no addt'l complaints, except as documented; Denies abdominal pain, constipation or nausea Genitourinary Genitourinary: Reports systems reviewed and no addt'l complaints, except as documented; Denies burning urination, difficulty urinating, dysuria, urinary frequency or urinary incontinence Musculoskeletal Musculoskeletal: Reports systems reviewed and no addt'l complaints, except as documented Integumentary Integumentary: Reports systems reviewed and no addt'l complaints, except as documented Neurologic Neurologic: Reports systems reviewed and no addt'l complaints, except as documented; Denies abnormal speech, dizziness or headache(s) Psychiatric Psychiatric: Reports systems reviewed and no addt'l complaints, except as documented Endocrine Endocrinology: Reports systems reviewed and no addt'l complaints, except as documented Hematologic/Lymphatic Hematologic/Lymphatic: Reports systems reviewed and no addt'l complaints, except as documented Physical Exam Const alert, oriented x3 and no apparent distress Neck full ROM Resp normal respiratory effort, normal air movement and no retractions Effort and Inspection: able to speak in complete sentences and symmetric chest movement GI soft to palpation Bladder / Kidney Exam: bladder normal to palpation Uterus Palpation: uterus fundus firm Extremity normal to inspection and full ROM Psych mental status grossly normal, thought process normal and cooperative Assessment & Plan (1) Twin delivered vaginally: COMMENT: sm 36.6 Boys Walker & Raul PLAN: s/p PPD # 2 1. routine post delivery care 2. breast feeding- support given 3. rh positive 4. rubella immune 5. Discharge home (2) Gestational HTN: COMMENT: severe with thrombocytopenia, proceed with delivery. (3) Thrombocytopenia affecting : (4) Abnormal glucose affecting : COMMENT: passed 3 hour gct (5) Dichorionic diamniotic twin gestation: COMMENT: Growth US Q4 weeks per MFM (6) Dichorionic diamniotic twin in second trimester: COMMENT: start testing at 36 weeks (7) Abnormal thyroid function test: (8) Twin gestation in first trimester: COMMENT: appears di/di - will confirm with NIPT and MFM scan (9) Supervision of high-risk : COMMENT: PRR, , HONG 09/30/24, boys CJ (10) Family history of autism in sibling: COMMENT: Brother, mild (11) Hx of exposure to tuberculosis: COMMENT: has tested + with blood test but Negative with skin test. Saw ID who did not treat pt. 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
[2024-09-10 13:47] VITALS: BP 117/83; PULSE 95; RESP 16; TEMP 36.7; O2SAT 96
--- NOTE | 2024-09-20 09:53 | OB.VAGDELI_ITS ---
Assessment & Plan (1) Twin delivered vaginally: COMMENT: sm 36.6 Boys Walker & Raul Vaginal Delivery Maternal Presentation Maternal Presentation: see assessment and plan Vaginal Delivery Information Procedure Performed: Spontaneous Vaginal Delivery Surgeon/Practitioner: Tricia Beaulieu Pre-Procedure Diagnosis: see assessment and plan Post-Procedure Diagnosis: same Type of anesthesia: Epidural Findings Description of procedure: Patient began pushing, pushed several hours, first with myself and then dr dutta present, and then I returned for the delivery and delivered the head in the MILA presentation. The head was delivered atraumatically. The anterior and posterior shoulders delivered without complication followed by the rest of the and the infant was placed on the maternal abdomen. Delayed cord clamping was employed for approximately 60 seconds. Cord was clamped and cut, set off to the side. second infant scanned and noted to be vertex with a reassuring FHT pattern. cervix checked and noted to be 7 cm. after serveral more contractions she was dilating more and the membranes were ruptured for clear fluid, and then she was complete again. she began pushing and delivered the second infants head without complication, followed by The anterior and posterior shoulders delivered without complication followed by the rest of the and the infant was placed on the maternal abdomen. delayed cord clamping employed and then it was cut and then gentle traction was applied to the cord and the placenta delivered spontaneously immediately following it was noted to be intact with three-vessel cord x 2. The perineum and vagina were inspected and was noted to have a - second degree laceration that was repaired in the usual fashion with 3-0 vicryl rapide. Patient and infants tolerated delivery well. Presentation: Vertex Placental Delivery Description: Spontaneous Specimen collected: Yes Description of specimen(s) removed: placenta Residential Insurance Inspector rn charge: No Post Vaginal Deli Medications given after delivery: Other (pitocin) Complication Complications: No Baby B Information Amniotic Membrane Rupture Type: Artificial Presentation: Vertex Operative Information Mode of Delivery: Vaginal Cord Vessel Description: 3 Vessels Delayed Cord Clamping: Yes Multi Select Codes Urinary/Genital Urinary/Genital CPT Codes: 65531 Vaginal Delivery global pkg and Other Procedure See Report ([id number])
== END 2024-09-10 15:00 | disposition home or self-care (01) | DRG 806 ==
LOC: WP 15:47
PROVIDERS: Advanced Practice Midwife; Admitting Provider Obstetrics & Gynecology; PCP Internal Medicine; Referring Provider Obstetrics & Gynecology; Visit Provider Obstetrics & Gynecology
DX: O13.4 Gestational [pregnancy-induced] hypertension without significant proteinuria, complicating childbirth (principal); Z37.2 Twins, both liveborn; O99.12 Other diseases of the blood and blood-forming organs and certain disorders involving the immune mechanism complicating childbirth; O60.14X1 Preterm labor third trimester with preterm delivery third trimester, fetus 1; O30.043 Twin pregnancy, dichorionic/diamniotic, third trimester; D69.59 Other secondary thrombocytopenia; O60.14X2 Preterm labor third trimester with preterm delivery third trimester, fetus 2; Z14.1 Cystic fibrosis carrier; Z20.1 Contact with and (suspected) exposure to tuberculosis; O70.1 Second degree perineal laceration during delivery; Z3A.36 36 weeks gestation of pregnancy
CPT/HCPCS: 36415; 59025; 59050; 74018; 80053; 82570; 84156; 85025; 85027; 86780; 86850; 86900; 86901; J0702

== ENCOUNTER → 2024-09-15 | Outpatient (CLI) | payer OTHER, SELFPAY ==
[2024-09-15 14:18] LABS: Absolute Lymphocyte Count 2.79 X10^3/uL (0.83-4.51); Absolute Neutrophil Count 7.7 X10^3/uL (2.0-7.7); Basophil# 0.02 X10^3/uL; Basophil% 0.2 % (0-1); Eosinophil# 0.16 X10^3/uL; Eosinophils% 1.4 % (0-5); Hemoglobin 13.9 g/dL (12.0-15.0); Lymphocyte # 2.79 X10^3/ul (0.83-4.51); Lymphocyte % 24.1 % (19-41); Mean Corp Hgb Conc 34.8 g/dL (32-36); Mean Platelet Vol. 10.6 fl (6.2-12.0); Monocyte# 0.88 X10^3/uL; Monocyte% 7.6 % (0-10); NRBC Flagged by Analyzer 0 % (0-5); Neutrophil # 7.68 X10^3/uL (2.7-7.7); Neutrophil % 66.1 % (47-70); Platelet Count 329 K/mm3 (150-450); RBC Distribution Width SD 43.5 fl (35.1-43.9); Red Blood Count 4.35 M/mm3 (4.2-5.4); White Blood Count 11.6 K/mm3 (4.4-11.0)
[2024-09-15 15:44] LABS: ALB/GLOB Ratio 1.4 RATIO (0.9-2.4); AST(SGOT) 34 U/L (<=31); Alanine Aminotransfer ALT/SGPT 59 U/L (<=34); Alkaline Phosphatase 151 U/L (35-104); Anion Gap 13 (5-15); BUN 16 mg/dL (4-19); BUN/Creat Ratio 19.1 RATIO (10-20); Calcium 9.1 mg/dL (7.6-11.0); Carbon Dioxide 23.4 mmol/L (22.0-29.0); Chloride 104 mmol/L (96-108); Creatinine, Serum 0.83 mg/dL (0.70-1.20); EST Glomerular Filtration Rate 102 (>60); Globulin 2.8 g/dL (2.2-4.2); Glucose 77 mg/dL (70-99); Potassium 3.9 mmol/L (3.3-5.1); Protein, Total 6.8 g/dL (5.9-8.4); Sodium Level 141 mmol/L (133-145); Total Bilirubin 0.51 mg/dL (0.00-1.30)
== END | disposition home or self-care (01) ==
LOC: LAB 13:41
PROVIDERS: PCP Internal Medicine; Referring Provider Obstetrics & Gynecology; Visit Provider Obstetrics & Gynecology
DX: O13.9 Gestational [pregnancy-induced] hypertension without significant proteinuria, unspecified trimester (principal); Z3A.00 Weeks of gestation of pregnancy not specified
CPT/HCPCS: 36415; 80053; 85025

== ENCOUNTER → 2024-10-25 | Outpatient (CLI) | payer OTHER, SELFPAY ==
[2024-10-25 12:08] LABS: Absolute Lymphocyte Count 2.56 X10^3/uL (0.83-4.51); Absolute Neutrophil Count 3.3 X10^3/uL (2.0-7.7); Basophil# 0.02 X10^3/uL; Basophil% 0.3 % (0-1); Eosinophil# 0.35 X10^3/uL; Eosinophils% 5.2 % (0-5); Hematocrit 43.4 % (37-47); Hemoglobin 14.9 g/dL (12.0-15.0); Lymphocyte # 2.56 X10^3/ul (0.83-4.51); Lymphocyte % 38.2 % (19-41); Mean Corp Hgb Conc 34.3 g/dL (32-36); Mean Corpuscular Hgb 31.3 pg (27.0-32.0); Mean Corpuscular Volume 91.2 fL (81-99); Monocyte# 0.48 X10^3/uL; Monocyte% 7.2 % (0-10); NRBC Flagged by Analyzer 0 % (0-5); Neutrophil # 3.28 X10^3/uL (2.7-7.7); Platelet Count 297 K/mm3 (150-450); RBC Distribution Width CV 11.9 % (11.6-14.6); Red Blood Count 4.76 M/mm3 (4.2-5.4); White Blood Count 6.7 K/mm3 (4.4-11.0)
[2024-10-25 14:26] LABS: ALB/GLOB Ratio 1.5 RATIO (0.9-2.4); AST(SGOT) 21 U/L (<=31); Alanine Aminotransfer ALT/SGPT 22 U/L (<=34); Albumin, Serum 4.5 g/dL (3.5-5.0); Alkaline Phosphatase 142 U/L (35-104); Anion Gap 12 (5-15); BUN 15 mg/dL (4-19); BUN/Creat Ratio 17.5 RATIO (10-20); Calcium,Total 9.9 mg/dL (7.6-11.0); Carbon Dioxide 26.4 mmol/L (21.0-32.0); Chloride 101 mmol/L (98-108); Creatinine, Serum 0.85 mg/dL (0.70-1.20); EST Glomerular Filtration Rate 99 (>60); Glucose 75 mg/dL (70-99); Potassium 4.1 mmol/L (3.3-5.1); Protein, Total 7.5 g/dL (5.9-8.4); Sodium Level 139 mmol/L (133-145); Total Bilirubin 0.45 mg/dL (0.00-1.30)
== END | disposition home or self-care (01) ==
PROVIDERS: PCP Internal Medicine; Referring Provider Obstetrics & Gynecology; Visit Provider Obstetrics & Gynecology
DX: O13.9 Gestational [pregnancy-induced] hypertension without significant proteinuria, unspecified trimester (principal); O99.119 Other diseases of the blood and blood-forming organs and certain disorders involving the immune mechanism complicating pregnancy, unspecified trimester; D69.6 Thrombocytopenia, unspecified; Z3A.00 Weeks of gestation of pregnancy not specified
CPT/HCPCS: 36415; 80053; 85025